=== PATIENT | female | born 1955 | race Caucasian/White ===

== ENCOUNTER → 2016-10-02 | Outpatient (CLI) | payer BC ==
[~2016-10-02] MED LIST: ACET-1256 PO; CHOL20009 PO; CYAN100048 PO; IBUP-1050 PO; METO25TA3 PO
[2016-10-02 12:54] LABS: BLOOD UREA NITROGEN 11 mg/dl (7-18); BUN/CREATININE RATIO 15.3 (10-20); CALCIUM 8.9 mg/dl (8.5-10.1); CARBON DIOXIDE 30 mmol/L (21-32); CHLORIDE 107 mmol/L (98-107); CREATININE 0.74 mg/dl (0.60-1.20); GLUCOSE 111 mg/dl (70-99); SODIUM 142 mmol/L (136-145)
[2016-10-02 12:57] LABS: CHOLESTEROL 217 mg/dl (0-200); CHOLESTEROL/HDL RATIO 3.4; HDL CHOLESTEROL 63 mg/dl; LDL CHOLESTEROL CALCULATED 129 mg/dl; TRIGLYCERIDES 123 mg/dl (0-150); VERY LOW DENSITY LIPOPROT CALC 25 mg/dl
== END | disposition home or self-care (01) ==
LOC: C.LABPVFM 09:58
PROVIDERS: ATTEND Family Medicine
DX: Z13.220 Encounter for screening for lipoid disorders (principal); Z13.1 Encounter for screening for diabetes mellitus

== ENCOUNTER → 2017-01-30 | Outpatient (CLI) | payer BC ==
--- NOTE | 2017-01-31 12:46 | MAMMOGRAPHY REPORT ---
BILATERAL DIGITAL SCREENING MAMMOGRAM TOMOSYNTHESIS WITH CAD: 01/30/2017 CLINICAL HISTORY: Routine screening. Patient has no complaints. TECHNIQUE: Breast tomosynthesis in addition to standard 2D mammography was performed. Current study was also evaluated with a Computer Aided Detection (CAD) system. COMPARISON: No prior exams were available for comparison. BREAST COMPOSITION: There are scattered areas of fibroglandular density in both breasts. FINDINGS: No suspicious masses, calcifications, or areas of architectural distortion are noted in ei ther breast. IMPRESSION: ACR BI-RADS CATEGORY 1: NEGATIVE There is no mammographic evidence of malignancy. A 1 year screening mammogram is recommended. The pa tient will receive written notification of the results. Approximately 10% of breast cancers are not detected with mammography. A negative mammographic report should not delay biopsy if a clinically suggestive mass is present. Carleen Cesar M.D. ah/:01/30/2017 17:03:01 Mid Level Provider: Katharine NEIL)([employer]), [facility] letter sent: Normal 1/2 BI-RADS Code: ACR BI-RADS Category 1: Negative
== END | disposition home or self-care (01) ==
LOC: C.MAMM 15:34
PROVIDERS: ATTEND Family Medicine
DX: Z12.31 Encounter for screening mammogram for malignant neoplasm of breast (principal)

== ENCOUNTER 2017-01-31 11:45 | Emergency (ER) | payer BC ==
[~2017-01-31] VITALS: Ht 152.4 cm; Wt 79.6 kg
[~2017-01-31 11:45] MED LIST changes: -CHOL20009 PO; -CYAN100048 PO; -METO25TA3 PO
[2017-01-31 11:46] VITALS: Ht 152.4 cm; Wt 79.6 kg
[2017-01-31] MEDS ORDERED: ONDANSETRON INJ 2 MG/ML 2 ML VIAL IV STA (12:15)
[2017-01-31] MEDS ORDERED: MoRPHine SULFATE 4 MG/ML 1 ML CARP\\VIAL IV STA (12:15)
[2017-01-31] MEDS ORDERED: SODIUM CHLORIDE 0.9% 1000ML 1,000 ML IV STA (12:15)
[2017-01-31] MEDS ORDERED: METO25TA3 PO (12:19)
[2017-01-31] MEDS ORDERED: CYAN100048 PO (12:19)
[2017-01-31] MEDS ORDERED: CHOL20009 PO (12:19)
--- NOTE | 2017-01-31 12:19 | EMERGENCY ROOM VISIT NOTE ---
History First contact with patient: 12:06 Chief Complaint: ABDOMINAL PAIN Stated Complaint: SEVERE STOMACH PAIN Nursing Triage Summary: Pt reports upper abdominal pain x 2-3 days with diarrhea. Pt reports hx of pancreatitis and states "it feels exactly like that." Pt reports she is unable to eat, makes abdominal pain worse. History of Present Illness The patient is a 61 year old female who presents to the Emergency Room via private vehicle accompanied by with complaints of "severe stomach pain" . The patient states that she has a history of pancreatitis. She is status post cholecystectomy and hysterectomy. This past Saturday she began with upper abdominal pain in the epigastric region, as well as diarrhea. She rates the pain as minimal, is a 1-2/10. At times it will spasm and is a 6-8/10. She notes that it is a nagging like pain. She states that when she had her gallbladder out this was a similar feeling. She has associated nausea. She denies any chest pain, shortness of breath, fevers, chills, emesis, recent alcohol use, urinary symptoms. Review of Systems A complete 10-point Review of Systems was discussed with the patient, with pertinent positives and negatives listed in the History of Present Illness. All remaining Review of Systems questions can be considered negative unless otherwise specified. Past Medical/Surgical History Pancreatitis, cholecystectomy, hysterectomy. Family History No pertinent. Social History Smoking Status: Never Smoker Patient lives locally. Current/Historical Medications Scheduled Cholecalciferol (Vitamin D), 1 TAB PO QAM Cyanocobalamin (Vitamin B-12), 2 TABS PO QAM Metoprolol Succinate (Toprol Xl), 25 MG PO QAM Physical Exam Vital Signs Date Time Temp Pulse Resp B/P (MAP) Pulse Ox O2 Delivery O2 Flow Rate FiO2 01/31/17 14:26 68 18 125/71 98 Room Air 01/31/17 12:40 74 18 128/85 94 Room Air 01/31/17 12:26 97 Room Air 01/31/17 12:16 73 01/31/17 11:46 36.7 79 18 150/89 99 Room Air Physical Exam VITAL SIGNS - Vital signs and nursing notes were reviewed. Patient is afebrile , hypertensive at 150/89, non-tachycardic and is saturating well on room air 99% . GENERAL -61-year-old female appearing her stated age who is in no acute distress. Communicates well with provider and answers questions appropriately. SKIN - Without rashes. Skin overlying the abdomen is unremarkable. HEAD - NC/AT. LUNGS - Chest wall symmetric without accessory muscle use, intercostals retractions, or central cyanosis. Normal vesicular breath sounds CTA B/L. No wheezes, rales, or rhonchi appreciated. CARDIAC - RRR with S1/S2. No murmur, rubs, or gallops appreciated. ABDOMEN - Abdominal contour without pulsations or visible masses. BS normoactive all four quadrants. There is tenderness in the epigastric region. It is also tender right upper quadrant. No palpable masses, hepatosplenomegaly , or ascites noted. NEUROLOGIC - Cranial nerves II through XII grossly intact. PSYCH - Pt is very pleasant and interacts well with examiner. Medical Decision & Procedures ER Provider Diagnostic Interpretation: ULTRASOUND RIGHT UPPER QUADRANT ABDOMEN CLINICAL HISTORY: Right upper quadrant abdominal pain. COMPARISON STUDY: Abdominal CT dated 09/17/2007. Abdominal ultrasound dated 11/06/2012. TECHNIQUE: Real-time, grayscale, and color flow sonography of the right upper quadrant of the abdomen was performed. Images are reviewed in the transverse and longitudinal planes. FINDINGS: Liver: The liver is normal in size and echotexture. There is no intrahepatic biliary ductal dilatation. The main portal vein is patent. Gallbladder: The gallbladder is surgically absent. The common bile duct measures up to 0.5 cm in diameter. Pancreas: Visualized portions of the pancreatic head and body are normal in appearance. The splenic vein is patent. Right kidney: Survey images of the right kidney demonstrate normal size and echotexture. There is no hydronephrosis. A 1.5 cm cyst is noted in the right upper pole. Ascites: None. IMPRESSION: No acute sonographic abnormality is seen in the right upper quadrant noting status post cholecystectomy. Electronically signed by: Wei Pollack M.D. 01/31/2017 2:11 PM Dictated Date/Time: 01/31/2017 2:09 PM ABD/PELVIS IV AND ORAL CONT CT DOSE: 854.67 mGycm HISTORY: Pain Upper quadrant abdominal pain. Hx Pancreatitis TECHNIQUE: Multiaxial CT images of the abdomen and pelvis were performed following the use of intravenous and oral contrast. A dose lowering technique was utilized adhering to the principles of ALARA. COMPARISON STUDY: Ultrasound same date FINDINGS: Lung bases are clear. Mild fatty infiltration of liver. Prior cholecystectomy. Spleen is uniform. Pancreas is within normal limits throughout. Small bilateral renal cysts. No evidence for hydronephrosis. Moderate wall edema of the a sending and transverse colon. Mild wall thickening and/or edematous change of the remainder the colon. Normal appendix. Unremarkable small bowel pattern. IMPRESSION: 1. Findings consistent with generalized colonic wall thickening. 2. Mild pericolonic infiltrative change. 3. The appearance suggests a nonspecific generalized colitis. 4. No evidence for abscess collection or obstructive change. The above report was generated using voice recognition software. It may contain grammatical, syntax or spelling errors. Electronically signed by: Lokesh Ho M.D. 01/31/2017 3:29 PM Dictated Date/Time: 01/31/2017 3:25 PM Laboratory Results 01/31/17 11:35 Red Blood Count 5.12, Mean Corpuscular Volume 86.1, Mean Corpuscular Hemoglobin 28.9, Mean Corpuscular Hemoglobin Concent 33.6, Mean Platelet Volume 9.0, Neutrophils (%) (Auto) 76.8, Lymphocytes (%) (Auto) 17.2, Monocytes (%) (Auto) 5.1, Eosinophils (%) (Auto) 0.4, Basophils (%) (Auto) 0.4, Neutrophils # (Auto) 6.52, Lymphocytes # (Auto) 1.46, Monocytes # (Auto) 0.43, Eosinophils # (Auto) 0.03, Basophils # (Auto) 0.03 01/31/17 11:35 Test 01/31/17 11:24 01/31/17 11:35 Urine Color DK YELLOW Urine Appearance TURBID (CLEAR) Urine pH 5.0 (4.5-7.5) Urine Specific [place] 1.026 (1.000-1.030) Urine Protein NEG (NEG) Urine Glucose (UA) NEG (NEG) Urine Ketones TRACE (NEG) Urine Occult Blood TRACE (NEG) Urine Nitrite NEG (NEG) Urine Bilirubin NEG (NEG) Urine Urobilinogen NEG (NEG) Urine Leukocyte Esterase NEG (NEG) Urine WBC (Auto) 1-5 /hpf (0-5) Urine RBC (Auto) 0-4 /hpf (0-4) Urine Hyaline Casts (Auto) 1-5 /lpf (0-5) Urine Epithelial Cells (Auto) >30 /lpf (0-5) Urine Bacteria (Auto) NEG (NEG) White Blood Count 8.48 K/uL (4.8-10.8) Red Blood Count 5.12 M/uL (4.2-5.4) Hemoglobin 14.8 g/dL (12.0-16.0) Hematocrit 44.1 % (37-47) Mean Corpuscular Volume 86.1 fL (80-100) Mean Corpuscular Hemoglobin 28.9 pg (25-34) Mean Corpuscular Hemoglobin Concent 33.6 g/dl (32-36) Platelet Count 183 K/uL (130-400) Mean Platelet Volume 9.0 fL (7.4-10.4) Neutrophils (%) (Auto) 76.8 % Lymphocytes (%) (Auto) 17.2 % Monocytes (%) (Auto) 5.1 % Eosinophils (%) (Auto) 0.4 % Basophils (%) (Auto) 0.4 % Neutrophils # (Auto) 6.52 K/uL (1.4-6.5) Lymphocytes # (Auto) 1.46 K/uL (1.2-3.4) Monocytes # (Auto) 0.43 K/uL (0.11-0.59) Eosinophils # (Auto) 0.03 K/uL (0-0.5) Basophils # (Auto) 0.03 K/uL (0-0.2) RDW Standard Deviation 40.6 fL (36.4-46.3) RDW Coefficient of Variation 12.7 % (11.5-14.5) Immature Granulocyte % (Auto) 0.1 % Immature Granulocyte # (Auto) 0.01 K/uL (0.00-0.02) Anion Gap 3.0 mmol/L (3-11) Est Creatinine Clear Calc Drug Dose 75.7 ml/min Estimated GFR () 105.1 Estimated GFR (Non- 90.7 BUN/Creatinine Ratio 13.4 (10-20) Calcium Level 9.1 mg/dl (8.5-10.1) Magnesium Level 1.8 mg/dl (1.8-2.4) Total Bilirubin 0.5 mg/dl (0.2-1) Aspartate Amino Transf (AST/SGOT) 15 U/L (15-37) Alanine Aminotransferase (ALT/SGPT) 29 U/L (12-78) Alkaline Phosphatase 114 U/L (45-117) Troponin I < 0.015 ng/ml (0-0.045) Total Protein 7.1 gm/dl (6.4-8.2) Albumin 3.6 gm/dl (3.4-5.0) Globulin 3.5 gm/dl (2.5-4.0) Albumin/Globulin Ratio 1.0 (0.9-2) Amylase Level 21 U/L (25-115) Lipase 74 U/L (73-393) Medications Administered Medications (Trade) Dose Ordered Sig/Miroslava Route Start Time Stop Time Status Last Admin Dose Admin Sodium Chloride 1,000 ml @ 200 mls/hr Q5H STAT IV 01/31/17 12:15 01/31/17 17:14 01/31/17 12:37 200 MLS/HR Morphine Sulfate (MoRPHine SULFATE INJ) 4 mg NOW STAT IV 01/31/17 12:15 01/31/17 12:18 DC 01/31/17 12:38 4 MG Ondansetron HCl (Zofran Inj) 4 mg NOW STAT IV 01/31/17 12:15 01/31/17 12:18 DC 01/31/17 12:37 4 MG Medical Decision Patient was seen and evaluated as above. After obtaining a thorough history and physical examination IV access was initiated, and the above workup was performed. Patient presents to us today with epigastric abdominal pain, that is worse with eating. Her abdomen exam is consistent with that of a nonsurgical abdomen. She is status post cholecystectomy and hysterectomy. Her associated symptoms are that of diarrhea and nausea. This is concerning for colitis. There is also concern for pancreatitis. CBC reveals no concerning leukocytosis or anemia. CMP reveals chloride slightly high at 109, kidney function is okay, liver functions okay, troponin is negative, amylase and lipase are both nondiagnostic. Urine reveals trace ketones and occult blood, there is some epithelial cells. She denies any blood in the urine. She is to follow up regarding the small finding of blood. Chest x-ray with abdomen series was obtained, and negative. Abdominal ultrasound was negative. Decision was made after discussing benefits versus risk of obtaining a CAT scan. This is of the abdomen and pelvis. This reveals a generalized colitis. She has no recent contacts with foodborne illness, or different foods. I suspect this is likely viral. She was offered antibiotics, and stool culture but at this time we're going to allow her to go home with outpatient management , without antibiotics and see how she does. She believes this is also a good idea. She is to return with worsening. She is to call her family doctor soon as possible schedule follow-up. She was educated upon conservative management, to include but not limited to plenty of fluid intake, and a bland diet over the next few days. She is to return with worsening. She was educated upon worrisome symptoms which to return, had questions as per discharge, and was discharged home in good condition with the male driving. She was given morphine and Zofran here as well as fluids. EKG reveals normal sinus rhythm. This is paired with a negative troponin. Case was discussed with the attending physician. In the evaluation and treatment of this patient following differential diagnoses were entertained: GA, PE, GERD, pancreatitis, colitis, among others. Impression Primary Impression: Colitis, acute Departure Information Dispostion Home / Self-Care Condition GOOD Referrals Minh Austin M.D. (PCP) Patient Instructions ED Diet [place], My [facility] Additional Instructions You have been treated in the Emergency Department your Abdominal Pain. Laboratory results and imaging studies have ruled out any emergent causes for your abdominal pain which would warrant admission or surgery. Please follow-up with Dr. Austin regarding the other CT scan findings as we discussed. It appears that you have a generalized colitis, which is and inflammation of your intestines. This is likely due to a virus. It should pass in the next few days. Please consume a bland diet for the next few days and drink plenty of water to stay hydrated. Gatorade is also good idea. For pain control, you can use the following [id number] medicines: - Regular strength (325mg/tab) Tylenol (acetaminophen) 2 tabs every 4-6 hours as needed. Do not exceed 12 tablets in a 24 hour period. Avoid taking more than 3 grams (3000 mg) of Tylenol per day. This includes any other sources of acetaminophen you may take on a regular basis. Drink plenty of water and stay well hydrated. As with any trip to the Emergency Department, you should follow-up with your Primary Care Provider from today's visit. Please call the first thing tomorrow morning to schedule follow-up. Return to the emergency department if your symptoms persist despite treatment plan outlined above or if the following symptoms occur: increased fevers, chills , worsening nausea/vomiting, blood in your stool or urine. Please return to the emergency department with new/concerning symptoms. ABD/PELVIS IV AND ORAL CONT CT DOSE: 854.67 mGycm HISTORY: Pain Upper quadrant abdominal pain. Hx Pancreatitis TECHNIQUE: Multiaxial CT images of the abdomen and pelvis were performed following the use of intravenous and oral contrast. A dose lowering technique was utilized adhering to the principles of ALARA. COMPARISON STUDY: Ultrasound same date FINDINGS: Lung bases are clear. Mild fatty infiltration of liver. Prior cholecystectomy. Spleen is uniform. Pancreas is within normal limits throughout. Small bilateral renal cysts. No evidence for hydronephrosis. Moderate wall edema of the a sending and transverse colon. Mild wall thickening and/or edematous change of the remainder the colon. Normal appendix. Unremarkable small bowel pattern.
[2017-01-31 12:26] VITALS: O2SAT 97
[2017-01-31] MEDS ORDERED: OPTIRAY 320 IV PRN (12:30)
[2017-01-31 12:54] LABS: BASO % 0.4 %; BASO ABS # 0.03 K/uL (0-0.2); COMPLETE YES; EOS % 0.4 %; HEMATOCRIT 44.1 % (37-47); IG% 0.1 %; LYMPH % 17.2 %; LYMPH ABS # 1.46 K/uL (1.2-3.4); MEAN CELL VOLUME 86.1 fL (80-100); MEAN CORPUSCULAR HEMOGLOBIN 28.9 pg (25-34); MEAN CORPUSCULAR HGB CONC 33.6 g/dl (32-36); MONO % 5.1 %; NEUT % 76.8 %; PLATELET COUNT 183 K/uL (130-400); RED BLOOD COUNT 5.12 M/uL (4.2-5.4); WHITE BLOOD COUNT 8.48 K/uL (4.8-10.8)
[2017-01-31 13:12] LABS: ALT/SGPT 29 U/L (12-78); AMYLASE 21 U/L (25-115); AST/SGOT 15 U/L (15-37); BLOOD UREA NITROGEN 9 mg/dl (7-18); BUN/CREATININE RATIO 13.4 (10-20); CALCIUM 9.1 mg/dl (8.5-10.1); CARBON DIOXIDE 28 mmol/L (21-32); CHLORIDE 109 mmol/L (98-107); CREATININE 0.71 mg/dl (0.60-1.20); GLUCOSE 100 mg/dl (70-99); MAGNESIUM 1.8 mg/dl (1.8-2.4); POTASSIUM 3.9 mmol/L (3.5-5.1); SODIUM 140 mmol/L (136-145)
[2017-01-31 13:18] LABS: ALKALINE PHOSPHATASE 114 U/L (45-117)
[2017-01-31 13:28] LABS: URINE APPEARANCE TURBID (CLEAR); URINE BILIRUBIN NEG (NEG); URINE COLOR DK YELLOW; URINE EPITHELIAL CELL AUTO >30 /lpf (0-5); URINE NITRITE NEG (NEG); URINE SPECIFIC GRAVITY 1.026 (1.000-1.030); UROBILINOGEN NEG (NEG); ZZUR CULT IF INDIC CLEAN CATCH NO
[2017-01-31 13:31] LABS: MANUAL MICROSCOPIC REQUIRED? NO; REVIEW REQ? NO
--- NOTE | 2017-01-31 13:46 | DIAGNOSTIC IMAGING REPORT ---
PA CHEST WITH ABDOMINAL SERIES CLINICAL HISTORY: Upper abdominal pain. FINDINGS: A PA chest radiograph is compared to study dated 11/06/2012. The examination is degraded by patient rotation. The cardiomediastinal silhouette is unremarkable. The lungs and pleural spaces are clear. No pneumothorax is seen. The skeletal structures are osteopenic. The bony thorax is grossly intact. Supine and erect abdominal radiographs are correlated with abdominal CT dated 09/17/2007. There is a nonobstructed abdominal bowel gas pattern. No evidence of intraperitoneal free air is seen. Cholecystectomy clips are noted. Enteric contrast is present. There are no abnormal abdominal calcifications. Pelvic phleboliths are noted. Mild lumbosacral spondylosis is observed. The lumbosacral spine and bony pelvis appear intact. IMPRESSION: 1. No active disease in the chest. 2. Nonobstructed abdominal bowel gas pattern. Electronically signed by: Wei Pollack M.D. 01/31/2017 1:45 PM Dictated Date/Time: 01/31/2017 1:43 PM
--- NOTE | 2017-01-31 14:13 | DIAGNOSTIC IMAGING REPORT ---
ULTRASOUND RIGHT UPPER QUADRANT ABDOMEN CLINICAL HISTORY: Right upper quadrant abdominal pain. COMPARISON STUDY: Abdominal CT dated 09/17/2007. Abdominal ultrasound dated 11/06/2012. TECHNIQUE: Real-time, grayscale, and color flow sonography of the right upper quadrant of the abdomen was performed. Images are reviewed in the transverse and longitudinal planes. FINDINGS: Liver: The liver is normal in size and echotexture. There is no intrahepatic biliary ductal dilatation. The main portal vein is patent. Gallbladder: The gallbladder is surgically absent. The common bile duct measures up to 0.5 cm in diameter. Pancreas: Visualized portions of the pancreatic head and body are normal in appearance. The splenic vein is patent. Right kidney: Survey images of the right kidney demonstrate normal size and echotexture. There is no hydronephrosis. A 1.5 cm cyst is noted in the right upper pole. Ascites: None. IMPRESSION: No acute sonographic abnormality is seen in the right upper quadrant noting status post cholecystectomy. Electronically signed by: Wei Pollack M.D. 01/31/2017 2:11 PM Dictated Date/Time: 01/31/2017 2:09 PM
--- NOTE | 2017-01-31 15:30 | DIAGNOSTIC IMAGING REPORT ---
ABD/PELVIS IV AND ORAL CONT CT DOSE: 854.67 mGycm HISTORY: Pain Upper quadrant abdominal pain. Hx Pancreatitis TECHNIQUE: Multiaxial CT images of the abdomen and pelvis were performed following the use of intravenous and oral contrast. A dose lowering technique was utilized adhering to the principles of ALARA. COMPARISON STUDY: Ultrasound same date FINDINGS: Lung bases are clear. Mild fatty infiltration of liver. Prior cholecystectomy. Spleen is uniform. Pancreas is within normal limits throughout. Small bilateral renal cysts. No evidence for hydronephrosis. Moderate wall edema of the a sending and transverse colon. Mild wall thickening and/or edematous change of the remainder the colon. Normal appendix. Unremarkable small bowel pattern. IMPRESSION: 1. Findings consistent with generalized colonic wall thickening. 2. Mild pericolonic infiltrative change. 3. The appearance suggests a nonspecific generalized colitis. 4. No evidence for abscess collection or obstructive change. The above report was generated using voice recognition software. It may contain grammatical, syntax or spelling errors. Electronically signed by: Lokesh Ho M.D. 01/31/2017 3:29 PM Dictated Date/Time: 01/31/2017 3:25 PM
[2017-01-31 16:34] VITALS: BP 125/71; PULSE 68; TEMP 36.7; O2SAT 98
== END 2017-01-31 16:35 | disposition home or self-care (01) ==
LOC: C.EDB 11:46
DX: K52.9 Noninfective gastroenteritis and colitis, unspecified (principal); Z87.19 Personal history of other diseases of the digestive system; Z79.899 Other long term (current) drug therapy

== ENCOUNTER → 2017-03-01 | Outpatient (CLI) | payer BC ==
[~2017-03-01] MED LIST changes: -ACET-1256 PO; +CHOL20009 PO; +CYAN100048 PO; -IBUP-1050 PO; +METO25TA3 PO
[2017-03-01 13:06] LABS: ALT/SGPT 25 U/L (12-78); BLOOD UREA NITROGEN 17 mg/dl (7-18); BUN/CREATININE RATIO 21.7 (10-20); CALCIUM 9.3 mg/dl (8.5-10.1); CARBON DIOXIDE 29 mmol/L (21-32); CHLORIDE 108 mmol/L (98-107); GLUCOSE 98 mg/dl (70-99); POTASSIUM 4.1 mmol/L (3.5-5.1); SODIUM 142 mmol/L (136-145)
[2017-03-01 13:17] LABS: ALB/GLOB RATIO 1.1 (0.9-2); ALKALINE PHOSPHATASE 111 U/L (45-117); AST/SGOT 18 U/L (15-37)
== END | disposition home or self-care (01) ==
LOC: C.LABPVFM 11:03
PROVIDERS: ATTEND Nurse Practitioner Family
DX: R00.2 Palpitations (principal)

== ENCOUNTER 2024-06-05 21:45 | Inpatient (IN) ==
--- NOTE | 2024-06-05 21:37 | Emergency Department Note ---
History of Present Illness General Chief Complaint: Heart Alert Stated Complaint: Chest Pain History of Present Illness Provider Complaint: chest pain Time: 16:00 Duration: constant Onset: during rest Pain Location: substernal Pain Radiation: none Severity: severe Current Pain Intensity: 10 Quality: + heaviness Relieved By: + nothing Exacerbated By: + nothing Associated symptoms: + nausea; no dyspnea Treatments prior to arrival: aspirin, nitroglycerin (5 sprays), oxygen and other (fentanyl IV) Home Medications Medication Instructions Recorded Confirmed Type cholecalciferol (vitamin D3) 50 2,000 units PO DAILY 05/12/19 06/05/24 History mcg (2,000 unit) capsule cyanocobalamin (vitamin B-12) 1,000 mcg PO DAILY 05/12/19 06/05/24 History 1,000 mcg tablet,extended release metoprolol succinate 25 mg 25 mg PO QAM #90 tabs 03/26/24 06/05/24 Rx tablet,extended release 24 hr omega 1-bsa-iah-fish oil 1,000 mg 1 cap PO DAILY 06/05/24 06/05/24 History (120 mg-180 mg) capsule (Fish Oil) Allergies Allergy/AdvReac Type Severity Reaction Status Date / Time house dust Allergy Mild Congested Verified 08/23/23 15:03 Jfspcwg-CXK-HmF Reductase AdvReac Intermediate Back Pain Verified 08/23/23 15:03 Inhibitor [Pjnvcin-Xjl-Svw Reductase Inhibitor] Past Med/Surg History Problem List (Updated 06/05/24 @ 22:26 by Kenny Cowan MD) STEMI (ST elevation myocardial infarction) (Acute) COVID-19 Bilateral knee pain Lipoma Statin intolerance Osteoarthritis Arthralgia of multiple sites (Chronic) Hyperlipidemia (Chronic) cannot shen statins or zetia Palpitations REASON FOR METOPROLOL Benign hypertension (Chronic) Medical History Urinary symptom or sign Osteoarthritis Urinary, incontinence, stress female Hx of pancreatitis GERD (gastroesophageal reflux disease) Surgical History History of anesthesia reaction WAS TOLD WITH ERCP "HAD DIFFICULT TIME GETTING PUT UNDER". History of ERCP History of dilatation and curettage "MULTIPLE TIMES" History of total abdominal hysterectomy History of cholecystectomy History of tooth extraction Family History Mother Family history of diabetes mellitus Myocardial infarction Father Myocardial infarction Denies family history of Ovarian cancer Prostate cancer Breast cancer Colorectal cancer Social History Smoking Status: Never smoker Second Hand Exposure: No; Do You Dip or Chew Tobacco: No; Hx Alcohol Use: Yes Alcohol type: beer, wine and hard liquor Hx Substance Use: No Preferred Language: Paraguayan Communication Ability: Effective Well Driller Required: No Beliefs That Will Affect Care: None marital status: Current Living Situation: Spouse Current Living Situation Comment: lives with spouse current occupational status: employed current occupation: works at [employer] How many Children do You have: 1 Feels Safe at Home: Yes Childhood Exposure to Second-Hand Smoke: Yes (both mother and father smokes ) Diet: regular caffeine: Yes (1 cup coffee a day ) Dental Care, Regularly: Yes Physical Activity Frequency: 5-6 Times per Week Seatbelt Use: always Sunscreen Use: Yes Assistive Devices: None Physical Exam Vital Signs Vital Signs - 24 hr 06/05/24 21:38 06/05/24 21:38 06/05/24 21:38 Temperature 36.9 C Temperature Source Oral Pulse Rate 103 H 103 H Pulse Rhythm Irregular Irregular Respiratory Rate 18 18 Respiratory Effort / Characteristics Non-Labored Spontaneous Respiratory Depth Normal Respiratory Pattern Regular Blood Pressure 128/83 Blood Pressure Mean 98 Blood Pressure Position Lying Pulse Oximetry 95 95 95 Oxygen Delivery Method Nasal Cannula Nasal Cannula Nasal Cannula Oxygen Flow Rate 2 2 2 Sepsis Recent Fever Within 48 Hours No Sepsis New/Unexplained Change in Mental Status No Sepsis Action Taken by Nursing No Action Required 06/05/24 21:52 06/05/24 22:15 Temperature Temperature Source Pulse Rate 68 105 H Pulse Rhythm Respiratory Rate 20 Respiratory Effort / Characteristics Respiratory Depth Respiratory Pattern Blood Pressure 148/86 H Blood Pressure Mean Blood Pressure Position Pulse Oximetry 96 Oxygen Delivery Method Nasal Cannula Oxygen Flow Rate 2 Sepsis Recent Fever Within 48 Hours Sepsis New/Unexplained Change in Mental Status Sepsis Action Taken by Nursing Physical Exam NECK: Normal range of motion. Neck supple. No JVD present. CV: Normal rate, regular rhythm, normal heart sounds and intact distal pulses. There is no peripheral edema. Palpable radial pulses bue. PULM/CHEST: Effort normal and breath sounds normal. No respiratory distress. No stridor. no wheezes. no rales. ABD: The abdomen is soft. There is no tenderness. NEURO: Motor and sensation grossly intact. Course Course 2134: Received an EKG from EMS which showed ST elevation in leads V1, V2, V3 with some mild ST depressions in leads II, III and aVF as well as V6 5 and V6. Patient was reportedly having chest pain that began at 4 PM. Nitroglycerin and aspirin were given via EMS. Heart alert called from the field. 2144: The patient was evaluated in room A1. A complete history and physical exam was performed Cardiac monitoring: An order was placed for continuous cardiac monitoring. The monitor shows a rate of 100 with sinus rhythm interpreted by va 2159: Dr. Baker at bedside ok with Brilinta 180 PO and heparin 5000 U bolus. 2214: Patient off to Cash Applications Manager. Administered Medications Discontinued Medications Heparin Sodium (Porcine) (Heparin Sod (Porcine) 1000 Unit/Ml) 5,000 units IV NOW ONE Stop: 06/05/24 21:53 Last Admin: 06/05/24 22:07 Dose: 5,000 units Documented By: CHARISSE Co-signed By: BILL Heparin Sodium (Porcine) (Heparin Sod (Porcine) 1000 Unit/Ml) Confirm Administered Dose 1,000 units .ROUTE .STK-MED ONE Stop: 06/05/24 21:53 Last Admin: 06/05/24 22:07 Dose: Not Given Documented By: CHARISSE Hydromorphone HCl (Hydromorphone Inj 1 Mg/Ml Syringe) 1 mg IV NOW STA Stop: 06/05/24 21:57 Last Admin: 06/05/24 22:06 Dose: 1 mg Documented By: CHARISSE Hydromorphone HCl (Hydromorphone Inj 1 Mg/Ml Syringe) Confirm Administered Dose 1 mg .ROUTE .STK-MED ONE Stop: 06/05/24 21:58 Last Admin: 06/05/24 22:07 Dose: Not Given Documented By: CHARISSE Morphine Sulfate (Morphine Sulfate 4 Mg/Ml 1 Ml Carp\\Vial) Confirm Administered Dose 4 mg .ROUTE .STK-MED ONE Stop: 06/05/24 21:52 Last Admin: 06/05/24 22:07 Dose: 4 mg Documented By: CHARISSE Ticagrelor (Ticagrelor 90 Mg Tab) 180 mg PO ONE ONE Stop: 06/05/24 21:53 Last Admin: 06/05/24 22:06 Dose: 180 mg Documented By: CHARISSE Ticagrelor (Ticagrelor 90 Mg Tab) Confirm Administered Dose 180 mg .ROUTE .STK- MED ONE Stop: 06/05/24 21:53 Last Admin: 06/05/24 22:07 Dose: Not Given Documented By: CHARISSE Medical Decision Making Laboratory Data 06/05/24 21:57 06/05/24 21:57 Labs: Lab Results 06/05/24 06/05/24 Range/Units 21:57 22:02 WBC 18.67 H (4.8-10.8) K/ul RBC 4.76 (4.20-5.40) M/uL Hgb 13.3 (12.0-16.0) g/dl POC Hgb 13.6 (12.0-16.0) g/dl Hct 41.0 (37.0-47.0) % POC Hct 40 (37-47) % MCV 86.1 (80.0-100.0) fL MCH 27.9 (25.0-34.0) pg MCHC 32.4 (32.0-36.0) g/dL RDW Std Deviation 39.0 (36.4-46.3) fL RDW Coeff of Tiffanie 12.4 (11.5-14.5) % Plt Count 275 (130-400) K/uL MPV 9.3 L (9.4-12.4) fL Immature Gran % (Auto) 0.4 % Neut % (Auto) 84.5 % Lymph % (Auto) 12.6 % Mcleod % (Auto) 2.1 % Eos % (Auto) 0.1 % Baso % (Auto) 0.3 % Neut # (Auto) 15.78 H (1.40-6.50) K/uL Lymph # (Auto) 2.35 (1.20-3.40) K/uL Mcleod # (Auto) 0.40 (0.11-0.59) K/uL Eos # (Auto) 0.02 (0.00-0.50) K/uL Baso # (Auto) 0.05 (0.00-0.20) K/uL Immature Gran # (Auto) 0.07 (0.01-0.20) K/uL POC Sodium 141 (135-144) mmol/L POC Potassium 3.5 (3.3-5.0) mmol/L POC Chloride 107 (101-112) mmol/L POC Total CO2 22 L (24-31) mmol/L POC Anion Gap 16.0 (16-25) mmol/L POC BUN 17 (7-18) mg/dl POC Creatinine 0.6 (0.6-1.3) mg/dl POC Glucose (other) 245 H (70-99) mg/dl POC Ioniz Calcium Anne-Marie 1.14 (1.12-1.32) mmol/l Imaging Data Chest x-ray: Attestation: I personally reviewed and interpreted this imaging study as follows: My impression: Chest x-ray negative. Airway clear. No pneumothorax. No consolidation. No cardiomegaly or cephalization.. No free air under the diaphragm. No fractures of the skeletal structures. ECG Data Attestation: I personally reviewed and interpreted this ECG as follows: Indication: chest pain Rate (beats per minute): 100 Rhythm: normal sinus Findings: + ST depression (II III aVF V5 V6) and + ST elevation (V1 V2 V3 aVR); no prolonged QT MDM Narrative 2135: Received an EKG from EMS which showed ST elevation in leads V1, V2, V3 with some mild ST depressions in leads II, III and aVF as well as V6 5 and V6. Patient was reportedly having chest pain that began at 4 PM. Nitroglycerin and aspirin were given via EMS. Heart alert called from the field. 2144: The patient was evaluated in room A1. A complete history and physical exam was performed Cardiac monitoring: An order was placed for continuous cardiac monitoring. The monitor shows a rate of 100 with sinus rhythm interpreted by me 2159: Dr. Baker at bedside ok with Brilinta 180 PO and heparin 5000 U bolus. 2215: Patient off to Cash Applications Manager. Impression & Plan STEMI (ST elevation myocardial infarction) Critical Care Time Critical Care Time: Yes Total Critical Care Time: 35 I have personally spent greater than 35 minutes of critical care time in the direct management of this patient. This includes bedside care, interpretation of diagnostic studies, and testing, discussion with consultants, patient, and family members, and other required patient management activities. This 35 minutes is in excess of all separately billable procedures. Discharge Plan Visit Data Chief Complaint: Heart Alert Stated Complaint: Chest Pain ED Provider: Kenny Cowan Discharge Problem: STEMI (ST elevation myocardial infarction) Patient Disposition: Admitted As Inpatient Discharge Instructions Interventions: ED Discharge Assessment Last Done: 06/05/24 22:15 Forms Stand Alone Forms: My [facility] [place] KeyCAPTCHA Prescriptions Prescriptions: No Action metoprolol succinate 25 mg tablet extended release 24 hr 25 mg PO QAM Qty: 90 3RF Rx Instructions: can't tolerate tartrate cholecalciferol (vitamin D3) 50 mcg (2,000 unit) capsule 2,000 units PO DAILY cyanocobalamin (vitamin B-12) 1,000 mcg tablet extended release 1,000 mcg PO DAILY omega 3-khj-kqt-fish oil [Fish Oil] 1,000 (120-180) mg Capsule 1 cap PO DAILY Referrals Referrals: Lynette Puri CRNP [Primary Care Provider] -
[2024-06-05] MEDS: TICAGRELOR 90 MG TAB PO ONE (22:06)
[2024-06-05] MEDS: HYDROmorphone INJ 1 MG/ML SYRINGE IV STA (22:06)
--- NOTE | 2024-06-05 22:06 | Pre Anesthesia Assessment ---
Date of Service June 05, 2024 Pre Sedation Assessment Cardiovascular + tachycardic Respiratory + respiratory effort normal Pre-Sedation Airway Assessment Smoking Status: Never smoker Hx Sleep Apnea: No Hx Difficult Intubation: No Short, Thick Neck: No Thyromental Distance: < 3.5 Finger Breadths Oral Cavity: + Dental Abnormalities Mallampati Class: III ASA: ASA4 Procedure Planning Contraindications for Sedation: none Current Medications Reviewed: Yes Notes The planned sedation has been discussed with the patient. Informed Consent was obtained. I have identified the patient, determined the appropriateness of sedation and have assessed the patient immediately prior to the procedure. All medicine(s) and interventions are by my order.
[2024-06-05] MEDS: HEPARIN SOD (PORCINE) 1000 UNIT/ML ONE (22:07)
[2024-06-05] MEDS: HEPARIN SOD (PORCINE) 1000 UNIT/ML IV ONE (22:07)
[2024-06-05] MEDS: HYDROmorphone INJ 1 MG/ML SYRINGE ONE (22:07)
[2024-06-05] MEDS: MoRPHine SULFATE 4 MG/ML 1 ML CARP\\VIAL ONE (22:07)
[2024-06-05] MEDS: TICAGRELOR 90 MG TAB ONE (22:07)
--- NOTE | 2024-06-05 22:10 | Cardiology Consultation ---
Date of Consultation June 05, 2024 Assessment & Plan (1) STEMI (ST elevation myocardial infarction): Presentation consistent with anterior STEMI and recommend proceeding with emergent cardiac catheterization and likely primary PCI. No apparent contraindications to procedure. Discussed risks, benefits, alternatives of procedure with patient and they are willing to proceed. Given IV heparin and ticagrelor 180 mg in the ED. Further recommendations pending findings of coronary angiography. History of Present Illness History of Present Illness 68-year-old woman here with acute chest pain and ECG concerning for acute [place]. Patient seen emergently in the ED after heart alert activated on arrival. Past cardiac history remarkable only for palpitations. Cardiac risk factors include hypertension, dyslipidemia with statin intolerance, obesity. Chest pain began approximately 4 PM, approximately 5.5 hours prior to arrival. Describes severe substernal pain with associated nausea. Denies similar symptoms in the past. Given multiple nitroglycerin in route. Continued to have severe chest pain despite multiple doses of morphine and 1 of Dilaudid in ED. Hypertensive to the 160s. EKG showed sinus rhythm with an terior ST elevations. Allergies Allergy/AdvReac Type Severity Reaction Status Date / Time house dust Allergy Mild Congested Verified 08/23/23 15:03 Fmpxokh-KSY-EtA Reductase AdvReac Intermediate Back Pain Verified 08/23/23 15:03 Inhibitor [Vsnbwah-Mfs-Lgw Reductase Inhibitor] Home Medications Medication Instructions Recorded Confirmed Type cholecalciferol (vitamin D3) 50 2,000 units PO DAILY 05/12/19 06/05/24 History mcg (2,000 unit) capsule cyanocobalamin (vitamin B-12) 1,000 mcg PO DAILY 05/12/19 06/05/24 History 1,000 mcg tablet,extended release metoprolol succinate 25 mg 25 mg PO QAM #90 tabs 03/26/24 06/05/24 Rx tablet,extended release 24 hr omega 3-dbf-gqv-fish oil 1,000 mg 1 cap PO DAILY 06/05/24 06/05/24 History (120 mg-180 mg) capsule (Fish Oil) Patient History Medical History Urinary symptom or sign Osteoarthritis Urinary, incontinence, stress female Hx of pancreatitis GERD (gastroesophageal reflux disease) Surgical History History of anesthesia reaction WAS TOLD WITH ERCP "HAD DIFFICULT TIME GETTING PUT UNDER". History of ERCP History of dilatation and curettage "MULTIPLE TIMES" History of total abdominal hysterectomy History of cholecystectomy History of tooth extraction Family History Mother Family history of diabetes mellitus Myocardial infarction Father Myocardial infarction Denies family history of Ovarian cancer Prostate cancer Breast cancer Colorectal cancer Social History Smoking Status: Never smoker Second Hand Exposure: No; Do You Dip or Chew Tobacco: No; Hx Alcohol Use: Yes Alcohol type: beer, wine and hard liquor Hx Substance Use: No Preferred Language: Jamaican Communication Ability: Effective Ems Educator Required: No Beliefs That Will Affect Care: None marital status: Current Living Situation: Spouse Current Living Situation Comment: lives with spouse current occupational status: employed current occupation: works at [employer] How many Children do You have: 1 Feels Safe at Home: Yes Childhood Exposure to Second-Hand Smoke: Yes (both mother and father smokes ) Diet: regular caffeine: Yes (1 cup coffee a day ) Dental Care, Regularly: Yes Physical Activity Frequency: 5-6 Times per Week Seatbelt Use: always Sunscreen Use: Yes Assistive Devices: None Review of Systems Review of Systems: Not completed in the setting of emergent situation Physical Exam Physical Exam: General: Uncomfortable, writhing HEENT: Sclerae anicteric Lungs: Clear anteriorly Cardiac: Regular with no murmurs Vascular: 2+ radial Abdomen: Soft, nontender Extremities: Well perfused, no peripheral edema Neuro: Nonfocal Psych: Alert orient x3, normal affect and mood PG Care Time/CCT Total # of Minutes Spent Total Time Spent with Patient: Total time spent is greater than 50% in coordination of care (as documented) at patient's floor/unit and/or counseling patient: Coding Level of Care Code 89861 ER DEPT VISIT MOD LVL 4 Diagnoses STEMI (ST elevation myocardial infarction) I21.3
[2024-06-05 22:14] LABS: iSTAT Creatinine 0.6 mg/dl (0.6-1.3); iSTAT Hemoglobin 13.6 g/dl (12.0-16.0); iSTAT Ionized Calcium 1.14 mmol/l (1.12-1.32); iSTAT Potassium 3.5 mmol/L (3.3-5.0)
[2024-06-05 22:15] LABS: Basophils # (auto) 0.05 K/uL (0.00-0.20); Basophils % (auto) 0.3 %; Eosinophils # (auto) 0.02 K/uL (0.00-0.50); Eosinophils % (auto) 0.1 %; Hemoglobin 13.3 g/dl (12.0-16.0); Immature Granulocytes # (auto) 0.07 K/uL (0.01-0.20); Immature Granulocytes % (auto) 0.4 %; Lymphocytes # (auto) 2.35 K/uL (1.20-3.40); Lymphocytes % (auto) 12.6 %; Mean Corpuscular Hemoglobin 27.9 pg (25.0-34.0); Mean Corpuscular Hgb Conc 32.4 g/dL (32.0-36.0); Mean Corpuscular Volume 86.1 fL (80.0-100.0); Mean Platelet Volume 9.3 fL (9.4-12.4); Monocytes % (auto) 2.1 %; Neutrophils # (auto) 15.78 K/uL (1.40-6.50); Neutrophils % (auto) 84.5 %; Platelet Count 275 K/uL (130-400); RDW Coefficient of Variation 12.4 % (11.5-14.5); Red Blood Count 4.76 M/uL (4.20-5.40); White Blood Count 18.67 K/ul (4.8-10.8)
[2024-06-05 22:33] LABS: Albumin Globulin Ratio 1.7 (0.9-2); Albumin Level 4.2 gm/dl (3.4-5.0); BUN Creatinine Ratio 21.1 (10-20); Bilirubin,Total 0.4 mg/dl (0.2-1.0); Calcium 9.4 mg/dl (8.6-10.3); Globulin 2.5 gm/dl (2.5-4.0); Magnesium 1.6 mg/dl (1.7-2.4); Potassium 3.6 mmol/L (3.5-5.1); Total Protein 6.7 gm/dl (6.0-8.3)
[2024-06-05 22:40] LABS: Troponin I High Sensitivity 709.9 pg/ml (0-14)
[2024-06-05] MEDS: niCARdipine 2,000 MCG/20 ML SYR ONE (22:42)
[2024-06-05] MEDS: NITROGLYCERIN/D5W 100MCG/ML 20ML SYR ONE (22:42)
[2024-06-05 22:46] LABS: Thyroid Stimulating Hormone 2.174 uIu/ml (0.300-4.500)
[2024-06-05] MEDS: EPTIFIBATIDE 2 MG/ML 10 ML VIAL (CATH LAB USE ONLY) IV ONE ×2 (23:04→23:05)
[2024-06-05] MEDS: EPTIFIBATIDE 0.75 MG/ML 75MG VIAL (CATH LAB USE ONLY) IV ONE (23:05)
[2024-06-05] MEDS: MIDAZOLAM HCL 1 MG/ML 2ML VIAL ONE (23:09)
[2024-06-05] MEDS: fentaNYL citrate PF 100 MCG/2 ML VIAL ONE (23:09)
[2024-06-05] MEDS: HEPARIN (PORCINE) 1000 UNIT/ML 10 ML (CATH LAB USE ONLY) ONE (23:11)
[2024-06-05] MEDS: FUROSEMIDE 40 MG/4 ML VIAL IV ONE (23:12)
[2024-06-05] MEDS: OPTIRAY 350 ONE (23:12)
--- NOTE | 2024-06-05 23:20 | Post Anesthesia Assessment ---
Date of Service June 05, 2024 Post Sedation Assessment Vital Signs Temp Pulse Resp BP Pulse Ox O2 Del Method O2 Flow Rate 06/05/24 22:15 105 H 20 148/86 H 96 Nasal Cannula 2 06/05/24 21:52 68 06/05/24 21:38 103 H 18 95 Nasal Cannula 2 06/05/24 21:38 95 Nasal Cannula 2 06/05/24 21:38 98.4 F 103 H 18 128/83 95 Nasal Cannula 2 Recovery Score Activity: Moves 4 extremities Respiration: Deep Breath/Cough Circulation: +/-20% PreAnes Value Consciousness: Fully Awake Oxygen Saturation: O2 needed for >90% Discharge Sedation Level of Care: Higher Level of Care Post Sedation Plan On clinical assessment, the patient appears to have tolerated the sedation without complications. Patient is recovering as anticipated. Patient will continue to be monitored by nursing and may be discharged when sedation discharge criteria are met per below protocol. Upon Completions of procedure up to 15 minutes continue every 5 minute vital signs and the P.A.R. score; then discharge to a Phase I or Fast Track to Phase II per the following guidelines: * Discharge Patient to appropriate Phase II area if PAR is 8 or greater or return to pre- procedure baseline. The post - procedure orders will be as directed. * If PAR score is less than 8 or not return to pre-procedure baseline then patient will follow Phase I monitoring till PAR is reached for Phase II. The Phase I may be done in procedure room or may call to secure a Phase I area. * If naloxone or flumazenil are used for reversal, hold in Phase I for continued monitoring from when last reversal dose was given for a minimum of 60 minutes or longer pending the nurse and/or physician discretion of patient condition before discharge to Phase II. Please call the Sedation Physician to re-evaluate and complete post-note for discharge to Phase II area. Do NOT discharge from procedure sedation or Phase 1 until post- sedation evaluation note is complete by procedure /sedation MD Sedation Discharge Instructions to be given to the patient at discharge to home.
--- NOTE | 2024-06-05 23:23 | Cardiac Catheterization ---
[facility] Data: Colorist Photography Cardiac Status Clinical evaluation leading to the procedure CAD Presenation: STEMI Anginal Classification: CCS IV Diagnostic Physicians Name: Tony Baker MD Closure Device Recommendations: PCI without planned CABG Cardiac Cath Procedure Full Procedure Date June 05, 2024 Pre-Procedure Diagnosis Pre-Procedure Diagnosis: STEMI AUC Score AUC Score: 9 Post-Procedure Diagnosis Post-Procedure Diagnosis: Severe CAD, Successful PCI and Elevated Intracardiac Pressures Procedure(s) Performed Procedure(s) Performed: Coronary Angiography, Left Heart Cath, Drug Eluting Stent and IVUS Automotive Lot Attendant Tony Baker MD Trust Administrator(s) Emily Estimated Blood Loss Estimated Blood Loss: 25 Medication(s) Medication(s): Fentanyl, Heparin, Integrilin, Lidocaine 1%, Nicardipine, Nitroglycerin and Versed Medication(s): Ticagrelor Summary of Findings Indication: STEMI/Heart Alert Access: 6 Fr slender right radial artery Catheters: EBU 3.5 guide, diagnostic JR4 Findings: LM -normal caliber, luminal irregularities LAD -medium caliber vessel, 100% acute proximal occlusion. Mid to distal vessel after reestablish flow without significant disease and wraps around apex. D2 a ppears chronically occluded with left to left collaterals. Circumflex -medium caliber, 30 to 40% mid segment stenosis medium OM 2 and left PLB without significant disease. RCA -dominant, large caliber, 30% mid segment disease, 40-50% distal stenosis involving takeoff of PDA. Remainder of PDA, PLB without significant disease. LVEDP -36 -- PCI -- Antithrombotic therapy: Heparin, ticagrelor, Integrilin Procedure: Left main cannulated with EBU 3.5 guide Laborer Rags 50 wire passed across lesion into distal vessel Proximal LAD lesion predilated with 2.5 compliant balloon [id number] IVUS catheter placed to mid LAD. Pullback revealed severe proximal disease with heavy thrombus burden, minimal calcification. No significant left main disease Dilated lesion stented with 3.0 x 26 mm Chacorta CORINNE Stent post-dilated with 3.5 noncompliant balloon IC vasodilators administered for spasm Repeat IVUS showed well apposed stent with some mild thrombus in midportion of stent, potentially underexpanded proximally Noted to have some dye hang up in what appeared to be distribution of now jailed D2. Also appeared to have faint left to left collaterals to that vessel. Multiple attempts made to pass wire across the stent struts into D2 were unsuccessful Stent further postdilated with 4.0 NC balloon Repeat IVUS showed well-expanded, well apposed stent with no apparent edge complications. Did have evidence of mild haziness in midportion of stent and apparent thrombus in that area on IVUS with sluggish apical flow Given IC Integrilin and additional IC vasodilators with improved LAD flow. Mild residual dye staining at proximal aspect of questionable D2 Post procedure SWATI 3 flow, stent well expanded with minimal residual stenosis and no apparent cardiac complications. Arterial Closure: TR band Summary: 1. Anterior STEMI/acute 100% proximal LAD occlusion with heavy thrombus burden 2. Mild to moderate non-culprit coronary artery disease -30% mid circumflex 30% mid RCA, 40 to 50% distal RCA involving takeoff of RPDA 100% chronic occlusion of second diagonal. Partially fills retrograde via left to left collateral 3. Elevated intracardiac filling pressure 4. Successful PCI of proximal to mid LAD with single drug-eluting stent (3.0 x 26 mm Chacorta; postdilated with 4.0 NC proximally). Recommendations: Admit to ICU for continued monitoring Loaded with ticagrelor 180 mg in ED IC Integrilin for 8 hours Given IV Lasix 40 mg x 1 in Colorist Photography Continue dual-antiplatelet therapy for at least 1 year. Trend troponins until peak, Check Echo Uptitrate beta-edwar/PIYUSH as BP allows High-dose statin Consult cardiac Rehab Hemodynamics Rest Ao:: 123/72/96 Final Ao: 127/71/96 LV: 122/36 Recommendations Recommendations: PCI without planned CABG Specimens Specimens: None Radiation Exposure (mGy) 3940 Contrast (mls) 125 Anesthesia Moderate 6340-6321 Procedural Complication(s) None Disposition ICU I attest to the content of the Intraoperative Record and any orders documented therein. Any exceptions are noted below. [facility] Card Cath Procedure Codes Cardiac Catheterization Procedure 1: Cardiovascular Cath Procedures: 08683 Coronaries and LHC (+/-LV) Moderate Sedation Procedure 1: Sedation/Anesthesia: 47068 Mod Sedation by the same physician;Init15 Min Child Age 5 & Up Procedure 2: Sedation/Anesthesia: 69131 Mod Sedation by the same physician; Ea Add [id number] Minutes Stenting Procedure 1: Cardiovascular Stent Procedures: 65084 Perc transluminal revascularization of acute sub/total occl, aMI PG Care Time/CCT Total # of Minutes Spent Total Time Spent with Patient: Total time spent is greater than 50% in coordination of care (as documented) at patient's floor/unit and/or counseling patient:
[2024-06-05] MEDS ORDERED: EPTIFIBATIDE BOLUS/DRIP IV STA (23:37)
[2024-06-05] MEDS ORDERED: ACETAMINOPHEN 325 MG TAB PO PRN (23:37)
[2024-06-05] MEDS ORDERED: NITROGLYCERIN SL 0.4 MG/TAB TAB SL PRN (23:37)
[2024-06-05] MEDS: EPTIFIBATIDE 75 MG/100 ML VIAL IV SCH (23:45)
--- NOTE | 2024-06-05 23:53 | History & Physical Report ---
Date of Service June 05, 2024 Assessment & Plan (1) STEMI (ST elevation myocardial infarction): Plan: 68yo female with history of HTN, statin-intolerant HLP presenting with acute onset substernal chest pain. Found to have acute anterior STEMI. Patient taken to the paint laboratory technician and found to have 100% proximal LAD occlusion s/p CORINNE x 1 Received Ticagrelor 180mg in the ER -Admit to MICU -Trend troponin -Check 2D echo -Check lipid panel and HgbA1C for risk stratification -Continue DAPT with ASA and Brillinta x 1 year -Continue Integrillin x 8 hours -Metoprolol 12.5mg po BID -Lisinopril 5mg po daily -Crestor 20mg po daily (2) Benign hypertension: Plan: Chronic. -Increasing Metoprolol and Lisinopril as tolerated -Monitor Admission and Anticipated Discharge Date Admission Date: June 05, 2024 History of Present Illness Chief Complaint: chest pain Primary Care Provider: SHELBY Cuevas Edelmira Mendieta is a 68yo female with history of HTN, HLP and Obesity presenting with acute onset of substernal chest pressure around 16:00. Patient reports she was doing some light housework when she developed chest pain. Patient presented by EMS. Administered ASA, Nitro x 5 sprays, Oxygen and Fentanyl prior to arrival. Still with chest pain upon arrival. EKG with evidence of anterior/septal STEMI Troponin elevated Administered Ticagrelor 180mg, Dilaudid 1mg, Heparin 5000u, Heart Alert activated and patient taken urgently for cardiac catheterization. Patient found to have 100% proximal LAD occlusion with heavy thrombus burden with mild to moderate CAD elsewhere (30% mid-circumflex, 30% mid RCA, 40-50% distal RCA and 100% chronic occlusion of second diagonal). CORINNE x 1 placed to proximal to mid LAD Patient did have high cardiac pressures, was administered Lasix 40mg IV x 1 dose in the paint laboratory technician Allergies Allergy/AdvReac Type Severity Reaction Status Date / Time house dust Allergy Mild Congested Verified 08/23/23 15:03 Xtsdniz-PLP-EkJ Reductase AdvReac Intermediate Back Pain Verified 08/23/23 15:03 Inhibitor [Ishzjyz-Bxx-Sis Reductase Inhibitor] Home Medications Medication Instructions Recorded Confirmed Type cholecalciferol (vitamin D3) 50 2,000 units PO DAILY 05/12/19 06/05/24 History mcg (2,000 unit) capsule cyanocobalamin (vitamin B-12) 1,000 mcg PO DAILY 05/12/19 06/05/24 History 1,000 mcg tablet,extended release metoprolol succinate 25 mg 25 mg PO QAM #90 tabs 03/26/24 06/05/24 Rx tablet,extended release 24 hr omega 7-jhz-pkk-fish oil 1,000 mg 1 cap PO DAILY 06/05/24 06/05/24 History (120 mg-180 mg) capsule (Fish Oil) Past Med/Surg History Problem List STEMI (ST elevation myocardial infarction) (Acute) COVID-19 Bilateral knee pain Lipoma Statin intolerance Osteoarthritis Arthralgia of multiple sites (Chronic) Hyperlipidemia (Chronic) cannot shen statins or zetia Palpitations REASON FOR METOPROLOL Benign hypertension (Chronic) Medical History Urinary symptom or sign Osteoarthritis Urinary, incontinence, stress female Hx of pancreatitis GERD (gastroesophageal reflux disease) Surgical History History of anesthesia reaction WAS TOLD WITH ERCP "HAD DIFFICULT TIME GETTING PUT UNDER". History of ERCP History of dilatation and curettage "MULTIPLE TIMES" History of total abdominal hysterectomy History of cholecystectomy History of tooth extraction Family History Mother Family history of diabetes mellitus Myocardial infarction Father Myocardial infarction Denies family history of Ovarian cancer Prostate cancer Breast cancer Colorectal cancer Social History Smoking Status: Never smoker Second Hand Exposure: No; Do You Dip or Chew Tobacco: No; Hx Alcohol Use: Yes (Holidays) Alcohol type: beer, wine and hard liquor Hx Substance Use: No Preferred Language: Yakut Communication Ability: Effective Citrus Peeler Required: No Beliefs That Will Affect Care: None marital status: Current Living Situation: Spouse Current Living Situation Comment: lives with spouse current occupational status: employed current occupation: works at [employer] How many Children do You have: 1 Feels Safe at Home: Yes Safety Concerns: Feels Safe At This Time Childhood Exposure to Second-Hand Smoke: Yes (both mother and father smokes ) Diet: regular caffeine: Yes (1 cup coffee a day ) Dental Care, Regularly: Yes Physical Activity Frequency: 5-6 Times per Week Seatbelt Use: always Sunscreen Use: Yes Assistive Devices: Glasses Review of Systems Review of Systems: All systems reviewed & are unremarkable except as noted in HPI & below Physical Exam Physical Exam: General: patient seen int he ER - in distress secondary to ongoing chest pain Skin: warm, dry, intact, no rashes or lesions HEENT: NC/AT, PERRL, EOMI, anicteric sclera, conjunctiva without injection, external ear normal to inspection and nontender, nares patent, moist mucus membranes, dentition intact, no oropharyngeal lesions, neck supple, trachea midline, no LAD, no thyromegaly, no JVD Heart: +S1/S2, regular, no m/r/g Lungs: equal air entry bilaterally, no rales/rhonchi/wheezes Abd: +BS, soft, NT/ND, no masses/organomegaly/ascites Ext: warm, 2+ pulses in UE/LE bilaterally, no clubbing/cyanosis or edema Neuro: grossly nonfocal Results & Data Results & Data Vital Signs (Past 12 Hours) Vital Signs Temp Pulse Resp BP Pulse Ox O2 Del Method O2 Flow Rate 06/05/24 22:15 105 H 20 148/86 H 96 Nasal Cannula 2 06/05/24 21:52 68 06/05/24 21:38 103 H 18 95 Nasal Cannula 2 06/05/24 21:38 95 Nasal Cannula 2 06/05/24 21:38 36.9 C 103 H 18 128/83 95 Nasal Cannula 2 Laboratory Results Laboratory Results WBC 18.67 K/ul (4.8-10.8) H 06/05/24 21:57 RBC 4.76 M/uL (4.20-5.40) 06/05/24 21:57 Hgb 13.3 g/dl (12.0-16.0) 06/05/24 21:57 POC Hgb 13.6 g/dl (12.0-16.0) 06/05/24 22:02 Hct 41.0 % (37.0-47.0) 06/05/24 21:57 POC Hct 40 % (37-47) 06/05/24 22:02 MCV 86.1 fL (80.0-100.0) 06/05/24 21:57 MCH 27.9 pg (25.0-34.0) 06/05/24 21:57 MCHC 32.4 g/dL (32.0-36.0) 06/05/24 21:57 RDW Std Deviation 39.0 fL (36.4-46.3) 06/05/24 21:57 RDW Coeff of Tiffanie 12.4 % (11.5-14.5) 06/05/24 21:57 Plt Count 275 K/uL (130-400) 06/05/24 21:57 MPV 9.3 fL (9.4-12.4) L 06/05/24 21:57 Immature Gran % (Auto) 0.4 % 06/05/24 21:57 Neut % (Auto) 84.5 % 06/05/24 21:57 Lymph % (Auto) 12.6 % 06/05/24 21:57 [place] % (Auto) 2.1 % 06/05/24 21:57 Eos % (Auto) 0.1 % 06/05/24 21:57 Baso % (Auto) 0.3 % 06/05/24 21:57 Neut # (Auto) 15.78 K/uL (1.40-6.50) H 06/05/24 21:57 Lymph # (Auto) 2.35 K/uL (1.20-3.40) 06/05/24 21:57 [place] # (Auto) 0.40 K/uL (0.11-0.59) 06/05/24 21:57 Eos # (Auto) 0.02 K/uL (0.00-0.50) 06/05/24 21:57 Baso # (Auto) 0.05 K/uL (0.00-0.20) 06/05/24 21:57 Immature Gran # (Auto) 0.07 K/uL (0.01-0.20) 06/05/24 21:57 PT Cancelled 06/05/24 21:57 INR Cancelled 06/05/24 21:57 APTT Cancelled 06/05/24 21:57 PTT Ratio Cancelled 06/05/24 21:57 Activ Coag Time Kaolin 287 SECONDS (94-140) H 06/05/24 22:32 POC Sodium 141 mmol/L (135-144) 06/05/24 22:02 Sodium 141 mmol/L (136-145) 06/05/24 21:57 POC Potassium 3.5 mmol/L (3.3-5.0) 06/05/24 22:02 Potassium 3.6 mmol/L (3.5-5.1) 06/05/24 21:57 POC Chloride 107 mmol/L (101-112) 06/05/24 22:02 Chloride 106 mmol/L (98-107) 06/05/24 21:57 Carbon Dioxide 22 mmol/L (21-32) 06/05/24 21:57 POC Total CO2 22 mmol/L (24-31) L 06/05/24 22:02 Anion Gap 13 (3-11) H 06/05/24 21:57 POC Anion Gap 16.0 mmol/L (16-25) 06/05/24 22:02 POC BUN 17 mg/dl (7-18) 06/05/24 22:02 BUN 16 mg/dl (6-23) 06/05/24 21:57 Creatinine 0.76 mg/dl (0.6-1.2) 06/05/24 21:57 POC Creatinine 0.6 mg/dl (0.6-1.3) 06/05/24 22:02 Est Cr Clr Drug Dosing 77.0 ml/min 06/05/24 21:57 eGFR 84.24 06/05/24 21:57 BUN/Creatinine Ratio 21.1 (10-20) H 06/05/24 21:57 Glucose 250 mg/dl (70-99(Fasting)) H 06/05/24 21:57 POC Glucose (other) 245 mg/dl (70-99) H 06/05/24 22:02 Calcium 9.4 mg/dl (8.6-10.3) 06/05/24 21:57 POC Ioniz Calcium Anne-Marie 1.14 mmol/l (1.12-1.32) 06/05/24 22:02 Magnesium 1.6 mg/dl (1.7-2.4) L 06/05/24 21:57 Total Bilirubin 0.4 mg/dl (0.2-1.0) 06/05/24 21:57 AST 26 U/L (13-39) 06/05/24 21:57 ALT 18 U/L (7-52) 06/05/24 21:57 Alkaline Phosphatase 101 U/L (34-104) 06/05/24 21:57 Total Creatine Kinase 250 U/L (26-192) H 06/05/24 21:57 Troponin I High Sens 709.9 pg/ml (0-14) H* 06/05/24 21:57 B-Natriuretic Peptide 68 pg/ml (0-100) 06/05/24 21:57 Total Protein 6.7 gm/dl (6.0-8.3) 06/05/24 21:57 Albumin 4.2 gm/dl (3.4-5.0) 06/05/24 21:57 Globulin 2.5 gm/dl (2.5-4.0) 06/05/24 21:57 Albumin/Globulin Ratio 1.7 (0.9-2) 06/05/24 21:57 Lipase 8 U/L (11-82) L 06/05/24 21:57 TSH 2.174 uIu/ml (0.300-4.500) 06/05/24 21:57 Impressions Chest X-Ray 06/05/24 21:38 Exam(s): XR CXR 1 VIEW EXAM: XR Chest, 1 View CLINICAL HISTORY: Reason for exam: Chest pain, nonspecific. TECHNIQUE: Frontal view of the chest. COMPARISON: Prior chest x-ray from January 31, 2017. FINDINGS: Lungs: Moderate to heavy peribronchial thickening of the central and peripheral bronchi with increased interstitial opacities throughout the lungs. No consolidation. Pleural space: Unremarkable. No pneumothorax. Heart: Unremarkable. No cardiomegaly. Mediastinum: Unremarkable. Normal mediastinal contour. Bones/joints: Unremarkable. No acute fracture. IMPRESSION: Findings concerning for atypical pneumonia. No evidence of consolidation or pleural effusion.. Electronically signed by: Yessenia Wagoner MD 06/06/24 00:20 AM PG Care Time/CCT Total # of Minutes Spent Total Time Spent with Patient: Total time spent is greater than 50% in coordination of care (as documented) at patient's floor/unit and/or counseling patient: Coding Level of Care Code 99357 INT INP/OBS CARE 3/75MIN Diagnoses STEMI (ST elevation myocardial infarction) I21.3 Benign hypertension I10
[2024-06-05] MEDS ORDERED: MoRPHine SULFATE 2 MG/ML CARP IV PRN (23:57)
--- NOTE | 2024-06-06 00:10 | Critical Care Consultation ---
Date of Consultation June 06, 2024 Assessment & Plan (1) STEMI (ST elevation myocardial infarction): EKG with anterior pattern ST elevation. Given heparin and ASA in the emergency department and taken for cardiac catheterization where she received CORINNE x 1 to the LAD for 100% occlusion. Noted to have high filling pressures and given Lasix x 1 dose. Also noted to have large clot burden and started on Integrilin drip. Admitted to ICU post cath - Continuous monitoring on telemetry - Maximize electrolytes -Follow-up TTE in a.m. -Continue Integrilin drip x 8 hours per cardiology recommendations -Trend troponin for peak - Brilinta, ASA, metoprolol, lisinopril, Crestor -Will follow-up cardiology further recommendations (2) Hyperlipidemia: History of statin intolerance. Continue Crestor (3) Benign hypertension: Continue MTP. Starting on lisinopril History of Present Illness Attending Physician: Cherie Dempsey DO History of Present Illness Patient is a 68-year-old female with past medical history of HTN who presented with chest pressure around 1600 that progressively got worse. She called 911 around 1800, And presented to the emergency department where she was found to have ST elevation in anterior leads. Heart alert was initiated and she was taken to the Science Professor where she was found to have 100% occlusion of the LAD with heavy thrombus burden. She received PCI with CORINNE x 1 to the proximal mid LAD. She also received IV Lasix, and was placed on Integrilin drip. On arrival to the ICU the patient is alert and oriented without acute distress. She is hemodynamically stable and maintaining oxygen saturations on room air. She denies further chest pain, shortness of breath, palpitations, radiation of pain to arm or neck. She denies recent illness or fevers, cough or congestion, headaches or dizziness, changes in vision, numbness or tingling, abdominal pain, nausea or vomiting or diarrhea, swelling in hands or feet, changes in urinary stream or frequency. Patient to remain in ICU for further management at this time. Allergies Allergy/AdvReac Type Severity Reaction Status Date / Time house dust Allergy Mild Congested Verified 08/23/23 15:03 Iayzqan-ADD-BsL Reductase AdvReac Intermediate Back Pain Verified 08/23/23 15:03 Inhibitor [Lvegwwi-Lra-Dcd Reductase Inhibitor] Home Medications Medication Instructions Recorded Confirmed Type cholecalciferol (vitamin D3) 50 2,000 units PO DAILY 05/12/19 06/05/24 History mcg (2,000 unit) capsule cyanocobalamin (vitamin B-12) 1,000 mcg PO DAILY 05/12/19 06/05/24 History 1,000 mcg tablet,extended release metoprolol succinate 25 mg 25 mg PO QAM #90 tabs 03/26/24 06/05/24 Rx tablet,extended release 24 hr omega 4-osm-qss-fish oil 1,000 mg 1 cap PO DAILY 06/05/24 06/05/24 History (120 mg-180 mg) capsule (Fish Oil) Patient History Medical History Urinary symptom or sign Osteoarthritis Urinary, incontinence, stress female Hx of pancreatitis GERD (gastroesophageal reflux disease) Surgical History History of anesthesia reaction WAS TOLD WITH ERCP "HAD DIFFICULT TIME GETTING PUT UNDER". History of ERCP History of dilatation and curettage "MULTIPLE TIMES" History of total abdominal hysterectomy History of cholecystectomy History of tooth extraction Family History Mother Family history of diabetes mellitus Myocardial infarction Father Myocardial infarction Denies family history of Ovarian cancer Prostate cancer Breast cancer Colorectal cancer Social History Smoking Status: Never smoker Second Hand Exposure: No; Do You Dip or Chew Tobacco: No; Hx Alcohol Use: Yes (Holidays) Alcohol type: beer, wine and hard liquor Hx Substance Use: No Preferred Language: Tamazight Communication Ability: Effective Auto Apprentice Mechanic Required: No Beliefs That Will Affect Care: None marital status: Current Living Situation: Spouse Current Living Situation Comment: lives with spouse current occupational status: employed current occupation: works at [employer] How many Children do You have: 1 Feels Safe at Home: Yes Safety Concerns: Feels Safe At This Time Childhood Exposure to Second-Hand Smoke: Yes (both mother and father smokes ) Diet: regular caffeine: Yes (1 cup coffee a day ) Dental Care, Regularly: Yes Physical Activity Frequency: 5-6 Times per Week Seatbelt Use: always Sunscreen Use: Yes Assistive Devices: Glasses Review of Systems Review of Systems: All systems reviewed & are unremarkable except as noted in HPI & below Physical Exam Constitutional: cooperative and comfortable Eyes: PERRL, conjunctivae normal, anicteric sclerae ENMT: external ear and nose normal, oropharynx normal Neck: trachea midline, no thyromegaly Respiratory: normal respiratory effort, lungs clear to auscultation Cardiovascular: RRR, no murmur, no edema Heart Sounds: normal S1 and normal S2; no murmur Extremities: no edema Gastrointestinal (Abdomen): normal bowel sounds, soft, nontender, no hepatosplenomegaly Musculoskeletal: no cyanosis or clubbing, extremities motor strength 5/5 Skin: no rashes, warm and dry Neurologic: PERRL, EOMI, accommodation nl, no face palsy, no dysarthria Psychiatric: A+Ox3, euthymic affect Results & Data Results & Data Vital Signs (Past 12 Hours) Vital Signs Temp Pulse Resp BP Pulse Ox O2 Del Method O2 Flow Rate 06/06/24 00:06 96 H 24 98 06/06/24 00:06 145/89 H 06/06/24 00:03 101 H 17 92 06/05/24 23:51 98 H 15 94 06/05/24 23:45 104 H 23 92 06/05/24 23:30 111 H 17 95 06/05/24 23:27 111 H 15 70 L 06/05/24 22:15 105 H 20 148/86 H 96 Nasal Cannula 2 06/05/24 22:00 128/83 06/05/24 22:00 36.3 C L 128/83 06/05/24 21:52 68 06/05/24 21:38 103 H 18 95 Nasal Cannula 2 06/05/24 21:38 95 Nasal Cannula 2 06/05/24 21:38 36.9 C 103 H 18 128/83 95 Nasal Cannula 2 Coding Level of Care Code 60820 IN/OBS CONSULT LVL 3,45M Diagnoses STEMI (ST elevation myocardial infarction) I21.3 Mixed hyperlipidemia E78.2 Hyperlipidemia type: mixed hyperlipidemia Benign hypertension I10 Time Spent (min) 54 (2) Hyperlipidemia Hyperlipidemia type: mixed hyperlipidemia Qualified Code(s): E78.2 - Mixed hyperlipidemia
--- NOTE | 2024-06-06 00:21 | XRay Report ---
Exam(s): XR CXR 1 VIEW EXAM: XR Chest, 1 View CLINICAL HISTORY: Reason for exam: Chest pain, nonspecific. TECHNIQUE: Frontal view of the chest. COMPARISON: Prior chest x-ray from January 31, 2017. FINDINGS: Lungs: Moderate to heavy peribronchial thickening of the central and peripheral bronchi with increased interstitial opacities throughout the lungs. No consolidation. Pleural space: Unremarkable. No pneumothorax. Heart: Unremarkable. No cardiomegaly. Mediastinum: Unremarkable. Normal mediastinal contour. Bones/joints: Unremarkable. No acute fracture. IMPRESSION: Findings concerning for atypical pneumonia. No evidence of consolidation or pleural effusion.. Electronically signed by: Yessenia Wagoner MD 06/06/24 00:20 AM
[2024-06-06 00:56] LABS: INR 1.1 (0.9-1.1); Partial Thromboplastin Ratio > 4.9; Prothrombin Time 11.5 Seconds (9.0-12.0)
[2024-06-06 01:27] LABS: Partial Thromboplastin Time > 139 Seconds (21-31)
[2024-06-06 05:00] LABS: Hematocrit (blood only) 41.7 % (37.0-47.0); Hemoglobin 13.4 g/dl (12.0-16.0); Mean Corpuscular Hemoglobin 27.7 pg (25.0-34.0); Mean Corpuscular Hgb Conc 32.1 g/dL (32.0-36.0); Mean Corpuscular Volume 86.3 fL (80.0-100.0); Mean Platelet Volume 9.3 fL (9.4-12.4); Platelet Count 224 K/uL (130-400); RDW Coefficient of Variation 12.6 % (11.5-14.5); RDW Standard Deviation 39.6 fL (36.4-46.3); Red Blood Count 4.83 M/uL (4.20-5.40); White Blood Count 16.55 K/ul (4.8-10.8)
[2024-06-06 05:16] LABS: BUN Creatinine Ratio 19.8 (10-20); Calcium 9.2 mg/dl (8.6-10.3); Chol HDL Ratio 4.2 (0-5); Creatinine Clr Calc Pharmacy 55.4 ml/min; Potassium 4.7 mmol/L (3.5-5.1)
[2024-06-06 05:27] LABS: Basophils # (auto) 0.03 K/uL (0.00-0.20); Basophils % (auto) 0.2 %; Immature Granulocytes # (auto) 0.06 K/uL (0.01-0.20); Immature Granulocytes % (auto) 0.4 %; Lymphocytes # (auto) 0.96 K/uL (1.20-3.40); Lymphocytes % (auto) 5.8 %; Monocytes # (auto) 0.34 K/uL (0.11-0.59); Monocytes % (auto) 2.1 %; Neutrophils # (auto) 15.16 K/uL (1.40-6.50); Neutrophils % (auto) 91.5 %; RBC Morphology Unremarkable
[2024-06-06 06:14] LABS: Troponin I High Sensitivity 166641.5 pg/ml (0-14)
[2024-06-06 07:10] LABS: Estimated Average Glucose 157 mg/dl; Hemoglobin A1C 7.1 % (4.5-5.6)
[2024-06-06] MEDS ORDERED: GLUCAGON FOR INJ 1 MG VIAL SQ PRN (07:20)
[2024-06-06] MEDS ORDERED: GLUCOSE 10 TAB/TUBE PO PRN (07:20)
[2024-06-06] MEDS ORDERED: GLUCOSE 40% GEL 15 GM TUBE PO PRN (07:20)
[2024-06-06] MEDS ORDERED: CARBOHYDRATES FOR HYPOGLYCEMIA PO PRN (07:20)
[2024-06-06] MEDS ORDERED: DEXTROSE 50% 50 ML SYRINGE IV PRN (07:20)
[2024-06-06] MEDS: ICU Protocol for HYPERglycemia SCH (07:54)
[2024-06-06] MEDS: ASPIRIN 81 MG ECTAB PO SCH (08:13)
[2024-06-06] MEDS: lisinopril 5 MG TAB PO SCH (08:13)
[2024-06-06] MEDS: PANTOprazole 40 MG TAB PO SCH (08:13)
[2024-06-06] MEDS: METOPROLOL TARTRATE 25 MG TAB PO SCH ×2 (08:13→20:49)
[2024-06-06] MEDS: INSULIN ASPART PER UNIT CHARGE SC SCH (08:18)
[2024-06-06] MEDS: ROSUVASTATIN CALCIUM 20 MG TAB PO SCH (08:40)
[2024-06-06 08:41] LABS: Magnesium 1.5 mg/dl (1.7-2.4)
--- NOTE | 2024-06-06 09:03 | Electrocardiogram Report ---
Test Reason : Blood Pressure : */* mmHG Vent. Rate : 100 BPM Atrial Rate : 100 BPM P-R Int : 154 ms QRS Dur : 68 ms QT Int : 372 ms P-R-T Axes : 52 70 -30 degrees QTcB Int : 479 ms Sinus rhythm with Premature supraventricular complexes Acute Anteroseptal infarct with reciprocal ST depression Abnormal ECG When compared with ECG of 31-Jan-2017 12:26, ST elevation in Anteroseptal leads now present ST depression in multiple leads now present Confirmed by Jose Alberto Khalil ([id number]) on 06/06/2024 9:03:16 AM Referred By: Cheire Dempsey Confirmed By: Jose Alberto Khalil
--- NOTE | 2024-06-06 09:04 | Electrocardiogram Report ---
Test Reason : Blood Pressure : */* mmHG Vent. Rate : 98 BPM Atrial Rate : 98 BPM P-R Int : 150 ms QRS Dur : 82 ms QT Int : 394 ms P-R-T Axes : 58 65 26 degrees QTcB Int : 503 ms Normal sinus rhythm Acute Anteroseptal infarct (cited on or before 05-Jun-2024) Diffuse Nonspecific ST abnormality Abnormal ECG When compared with ECG of 05-Jun-2024 21:49, Premature supraventricular complexes are no longer Present Serial changes of evolving Anteroseptal infarct Present (anteroseptal ST elevation nearly resolved) Confirmed by Jose Alberto Khalil ([id number]) on 06/06/2024 9:04:44 AM Referred By: Cherie Dempsey Confirmed By: Jose Alberto Khalil
[2024-06-06] MEDS: MAGNESIUM SULFATE / D5W 1 GM/100 ML BAG IV SCH (09:26)
--- NOTE | 2024-06-06 09:38 | XCELERA ---
[id number] \\[id number]
--- NOTE | 2024-06-06 09:45 | Hospitalist Progress Note ---
Date of Service June 06, 2024 Assessment & Plan (1) STEMI (ST elevation myocardial infarction): (2) CAD (coronary artery disease): (3) Hyperlipidemia: (4) Benign hypertension: (5) Type 2 diabetes mellitus: Plan 68-year-old female with past medical history of hypertension, hyperlipidemia, obesity who presented with acute onset of substernal chest pressure on 06/05/2024 while doing some light housework and was brought in by EMS and found to have elevated troponin with EKG showing STEMI #STEMI #Coronary artery disease #Essential hypertension #Hyperlipidemia with hypertriglyceridemia #Episode of V. tach: [address] Tony Baker saw the patient She underwent cardiac cath which showed Anterior STEMI/acute 100% proximal LAD occlusion with heavy thrombus burden, Mild to moderate non-culprit coronary artery disease, 30% mid circumflex, 30% mid RCA, 40 to 50% distal RCA involving takeoff of RPDA, 100% chronic occlusion of second diagonal. Partially fills retrograde via left to left collateral She had PCI of proximal to mid LAD with single drug-eluting stent on 06/05/2024 Troponin has gone from 709 on admission to 166,000 this morning Echo done: Results pending Triglyceride is 192 Cholesterol is 252 LDL is 154 VLDL is 38 HDL is 60 She is currently on dual antiplatelet therapy: Aspirin plus Brilinta for at least 1 year Continue Crestor 20 mg p.o. daily Magnesium level is 1.5: IV and oral magnesium replacement given V. tach Continue metoprolol 12.5 mg p.o. twice daily Continue lisinopril 5 mg p.o. daily Continue telemetry monitoring Patient will need cardiac rehab on discharge Await further cardiology recommendations #New diagnosis of type 2 diabetes mellitus A1c 7.1 Patient informed of diagnosis Pharmacy consult for glycemic control certified diabetes educator consult #Leukocytosis Patient is afebrile, denies any respiratory symptoms and denies any urinary symptoms COVID, influenza and RSV negative on admission Chest x-ray shows possible atypical pneumonia: Poor quality chest x-ray portable Check two-view chest x-ray Check urine analysis Elevated white count could be possibly related to STEMI Monitor white count CODE STATUS: Full code DVT prophylaxis: Start Lovenox 40 mg subcutaneous daily Care plan discussed with patient, nursing staff Admission and Anticipated Discharge Date Admission Date: June 05, 2024 Subjective Patient seen and examined H&P reviewed Labs reviewed Radiology reviewed Telemetry reviewed: Patient had episode of V. tach with 24 beats this morning Patient denies any chest pain, shortness of breath, nausea, vomiting, diarrhea, abdominal pain She denies any cough, fever, chills, urinary symptoms She is tolerating oral diet without any issues Social history: She denies tobacco use. Drinks alcohol very socially only. 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 She is independent of ADLs. She lives at home with her Physical Exam Physical Exam: General: No acute distress Psych: Awake and alert HEENT: Anicteric sclera, moist oral mucosa CVS: Regular rate and rhythm Lungs: Bilateral air entry, no wheezing noted Abdomen: Soft, nontender, no rebound, no guarding Ext: No lower extremity edema, no calf tenderness Neuro: No focal motor deficits noted Results & Data Results & Data Vital Signs (Past 12 Hours) Vital Signs Temp Pulse Resp BP Pulse Ox Pulse Ox O2 Del Method 06/06/24 08:10 36.5 C 06/06/24 08:06 101 H 12 100 06/06/24 08:00 132/95 06/06/24 07:50 Room Air 06/06/24 07:49 110 H 06/06/24 07:36 103 H 21 96 06/06/24 07:00 163/85 H 06/06/24 06:51 113 H 21 95 06/06/24 06:45 116 H 14 97 06/06/24 06:30 147/86 H 06/06/24 06:30 147/86 H 06/06/24 06:30 147/86 H 06/06/24 06:24 112 H 18 97 06/06/24 06:21 100 H 16 95 06/06/24 06:15 100 H 17 95 06/06/24 06:03 101 H 17 95 06/06/24 06:00 150/87 H 06/06/24 06:00 150/87 H 06/06/24 06:00 150/87 H 06/06/24 05:51 101 H 18 95 06/06/24 05:48 101 H 17 95 06/06/24 05:30 141/97 H 06/06/24 05:24 109 H 17 98 06/06/24 05:18 99 H 17 96 06/06/24 05:09 103 H 15 96 06/06/24 05:00 143/77 H 06/06/24 04:48 98 H 16 95 06/06/24 04:45 101 H 16 96 06/06/24 04:30 105 H 18 96 06/06/24 04:21 108 H 19 97 06/06/24 04:15 101 H 15 97 06/06/24 04:00 124/74 06/06/24 04:00 124/74 06/06/24 04:00 94 H 15 95 06/06/24 03:54 97 H 17 97 06/06/24 03:42 102 H 17 95 06/06/24 03:36 100 H 16 95 06/06/24 03:30 134/82 06/06/24 03:30 134/82 06/06/24 03:21 100 H 16 95 06/06/24 03:18 103 H 16 94 06/06/24 03:00 113 H 29 H 94 06/06/24 03:00 154/88 H 06/06/24 02:54 111 H 18 98 06/06/24 02:42 112 H 15 98 06/06/24 02:30 108 H 16 95 06/06/24 02:30 148/91 H 06/06/24 02:24 110 H 18 98 06/06/24 02:15 103 H 14 96 06/06/24 02:00 131/77 06/06/24 02:00 131/77 06/06/24 02:00 101 H 25 H 95 06/06/24 01:57 105 H 18 97 06/06/24 01:45 102 H 18 95 06/06/24 01:30 146/89 H 06/06/24 01:30 146/89 H 06/06/24 01:21 102 H 18 95 06/06/24 01:06 139 H 20 96 06/06/24 01:02 126/86 06/06/24 01:02 126/86 06/06/24 00:36 96 H 16 90 06/06/24 00:30 102 H 19 95 06/06/24 00:27 101 H 17 95 06/06/24 00:15 Nasal Cannula 06/06/24 00:12 102 H 20 94 06/06/24 00:06 145/89 H 06/06/24 00:06 96 H 24 98 06/06/24 00:06 145/89 H 06/06/24 00:03 101 H 17 92 06/06/24 00:00 100 H 06/05/24 23:51 98 H 15 94 06/05/24 23:45 104 H 23 92 06/05/24 23:41 94 06/05/24 23:30 111 H 17 95 06/05/24 23:30 16 95 Room Air 06/05/24 23:27 111 H 15 70 L 06/05/24 22:15 105 H 20 148/86 H 96 Nasal Cannula 06/05/24 22:00 128/83 06/05/24 22:00 36.3 C L 128/83 06/05/24 21:52 68 O2 Del Method O2 Flow Rate O2 Flow Rate 06/06/24 08:10 06/06/24 08:06 06/06/24 08:00 06/06/24 07:50 06/06/24 07:49 06/06/24 07:36 06/06/24 07:00 06/06/24 06:51 06/06/24 06:45 06/06/24 06:30 06/06/24 06:30 06/06/24 06:30 06/06/24 06:24 06/06/24 06:21 06/06/24 06:15 06/06/24 06:03 06/06/24 06:00 06/06/24 06:00 06/06/24 06:00 06/06/24 05:51 06/06/24 05:48 06/06/24 05:30 06/06/24 05:24 06/06/24 05:18 06/06/24 05:09 06/06/24 05:00 06/06/24 04:48 06/06/24 04:45 06/06/24 04:30 06/06/24 04:21 06/06/24 04:15 06/06/24 04:00 06/06/24 04:00 06/06/24 04:00 06/06/24 03:54 06/06/24 03:42 06/06/24 03:36 06/06/24 03:30 06/06/24 03:30 06/06/24 03:21 06/06/24 03:18 06/06/24 03:00 06/06/24 03:00 06/06/24 02:54 06/06/24 02:42 06/06/24 02:30 06/06/24 02:30 06/06/24 02:24 06/06/24 02:15 06/06/24 02:00 06/06/24 02:00 06/06/24 02:00 06/06/24 01:57 06/06/24 01:45 06/06/24 01:30 06/06/24 01:30 06/06/24 01:21 06/06/24 01:06 06/06/24 01:02 06/06/24 01:02 06/06/24 00:36 06/06/24 00:30 06/06/24 00:27 06/06/24 00:15 2 06/06/24 00:12 06/06/24 00:06 06/06/24 00:06 06/06/24 00:06 06/06/24 00:03 06/06/24 00:00 06/05/24 23:51 06/05/24 23:45 06/05/24 23:41 Nasal Cannula 2 06/05/24 23:30 06/05/24 23:30 06/05/24 23:27 06/05/24 22:15 2 06/05/24 22:00 06/05/24 22:00 06/05/24 21:52 Laboratory Results Laboratory Results - last 24 hr 06/05/24 06/05/24 06/05/24 21:57 22:02 22:32 WBC 18.67 H RBC 4.76 Hgb 13.3 POC Hgb 13.6 Hct 41.0 POC Hct 40 MCV 86.1 MCH 27.9 MCHC 32.4 RDW Std Deviation 39.0 RDW Coeff of Tiffanie 12.4 Plt Count 275 MPV 9.3 L Immature Gran % (Auto) 0.4 Neut % (Auto) 84.5 Lymph % (Auto) 12.6 Door % (Auto) 2.1 Eos % (Auto) 0.1 Baso % (Auto) 0.3 Neut # (Auto) 15.78 H Lymph # (Auto) 2.35 Door # (Auto) 0.40 Eos # (Auto) 0.02 Baso # (Auto) 0.05 Immature Gran # (Auto) 0.07 RBC Morphology PT Cancelled INR Cancelled APTT Cancelled PTT Ratio Cancelled Activ Coag Time Kaolin 287 H POC Sodium 141 Sodium 141 POC Potassium 3.5 Potassium 3.6 POC Chloride 107 Chloride 106 Carbon Dioxide 22 POC Total CO2 22 L Anion Gap 13 H POC Anion Gap 16.0 POC BUN 17 BUN 16 Creatinine 0.76 POC Creatinine 0.6 Est Cr Clr Drug Dosing 77.0 eGFR 84.24 BUN/Creatinine Ratio 21.1 H Glucose 250 H POC Glucose POC Glucose (other) 245 H Estimat Average Glucose Hemoglobin A1c Calcium 9.4 POC Ioniz Calcium Anne-Marie 1.14 Magnesium 1.6 L Total Bilirubin 0.4 AST 26 ALT 18 Alkaline Phosphatase 101 Total Creatine Kinase 250 H Troponin I High Sens 709.9 H* B-Natriuretic Peptide 68 Total Protein 6.7 Albumin 4.2 Globulin 2.5 Albumin/Globulin Ratio 1.7 Triglycerides Cholesterol LDL Cholesterol, Calc VLDL Cholesterol, Calc HDL Cholesterol Cholesterol/HDL Ratio Lipase 8 L TSH 2.174 Nasal Screen MRSA (PCR) 06/05/24 06/06/24 06/06/24 23:43 00:00 04:34 WBC 16.55 H RBC 4.83 Hgb 13.4 POC Hgb Hct 41.7 POC Hct MCV 86.3 MCH 27.7 MCHC 32.1 RDW Std Deviation 39.6 RDW Coeff of Tiffanie 12.6 Plt Count 224 MPV 9.3 L Immature Gran % (Auto) 0.4 Neut % (Auto) 91.5 Lymph % (Auto) 5.8 Door % (Auto) 2.1 Eos % (Auto) 0.0 Baso % (Auto) 0.2 Neut # (Auto) 15.16 H Lymph # (Auto) 0.96 L Door # (Auto) 0.34 Eos # (Auto) 0.00 Baso # (Auto) 0.03 Immature Gran # (Auto) 0.06 RBC Morphology Unremarkable PT 11.5 INR 1.1 APTT > 139 H* PTT Ratio > 4.9 Activ Coag Time Kaolin POC Sodium Sodium 139 POC Potassium Potassium 4.7 D POC Chloride Chloride 103 Carbon Dioxide 22 POC Total CO2 Anion Gap 14 H POC Anion Gap POC BUN BUN 18 Creatinine 0.91 POC Creatinine Est Cr Clr Drug Dosing 55.4 eGFR 67.87 BUN/Creatinine Ratio 19.8 Glucose 215 H POC Glucose POC Glucose (other) Estimat Average Glucose 157 Hemoglobin A1c 7.1 H Calcium 9.2 POC Ioniz Calcium Anne-Marie Magnesium 1.5 L Total Bilirubin AST ALT Alkaline Phosphatase Total Creatine Kinase Troponin I High Sens 93571.7 H* D 182316.5 H* D B-Natriuretic Peptide Total Protein Albumin Globulin Albumin/Globulin Ratio Triglycerides 192 H Cholesterol 252 H LDL Cholesterol, Calc 154 VLDL Cholesterol, Calc 38 H HDL Cholesterol 60 Cholesterol/HDL Ratio 4.2 Lipase TSH Nasal Screen MRSA (PCR) Negative 06/06/24 07:17 WBC RBC Hgb POC Hgb Hct POC Hct MCV MCH MCHC RDW Std Deviation RDW Coeff of Tiffanie Plt Count MPV Immature Gran % (Auto) Neut % (Auto) Lymph % (Auto) Door % (Auto) Eos % (Auto) Baso % (Auto) Neut # (Auto) Lymph # (Auto) Door # (Auto) Eos # (Auto) Baso # (Auto) Immature Gran # (Auto) RBC Morphology PT INR APTT PTT Ratio Activ Coag Time Kaolin POC Sodium Sodium POC Potassium Potassium POC Chloride Chloride Carbon Dioxide POC Total CO2 Anion Gap POC Anion Gap POC BUN BUN Creatinine POC Creatinine Est Cr Clr Drug Dosing eGFR BUN/Creatinine Ratio Glucose POC Glucose 184 H POC Glucose (other) Estimat Average Glucose Hemoglobin A1c Calcium POC Ioniz Calcium Anne-Marie Magnesium Total Bilirubin AST ALT Alkaline Phosphatase Total Creatine Kinase Troponin I High Sens B-Natriuretic Peptide Total Protein Albumin Globulin Albumin/Globulin Ratio Triglycerides Cholesterol LDL Cholesterol, Calc VLDL Cholesterol, Calc HDL Cholesterol Cholesterol/HDL Ratio Lipase TSH Nasal Screen MRSA (PCR) Diagnostic Findings Chest X-Ray 06/05/24 21:38 Exam(s): XR CXR 1 VIEW EXAM: XR Chest, 1 View CLINICAL HISTORY: Reason for exam: Chest pain, nonspecific. TECHNIQUE: Frontal view of the chest. COMPARISON: Prior chest x-ray from January 31, 2017. FINDINGS: Lungs: Moderate to heavy peribronchial thickening of the central and peripheral bronchi with increased interstitial opacities throughout the lungs. No consolidation. Pleural space: Unremarkable. No pneumothorax. Heart: Unremarkable. No cardiomegaly. Mediastinum: Unremarkable. Normal mediastinal contour. Bones/joints: Unremarkable. No acute fracture. IMPRESSION: Findings concerning for atypical pneumonia. No evidence of consolidation or pleural effusion.. Electronically signed by: Yessenia Wagoner MD 06/06/24 00:20 AM PG Care Time/CCT Total # of Minutes Spent Total Time Spent with Patient: Total time spent is greater than 50% in coordination of care (as documented) at patient's floor/unit and/or counseling patient: Coding Level of Care Code 88562 SUB INP/OBS CARE 350MIN Diagnoses STEMI (ST elevation myocardial infarction) I21.3 CAD (coronary artery disease) I25.10 Mixed hyperlipidemia E78.2 Hyperlipidemia type: mixed hyperlipidemia Benign hypertension I10 Type 2 diabetes mellitus E11.9 (3) Hyperlipidemia Hyperlipidemia type: mixed hyperlipidemia Qualified Code(s): E78.2 - Mixed hyperlipidemia
--- NOTE | 2024-06-06 10:30 | XRay Report ---
XR chest 2V PA/lateral HISTORY: 68 years-old Female abnormal portable cxr, stemi COMPARISON: 06/05/2024 TECHNIQUE: AP view of the chest FINDINGS: Cardiac silhouette is normal in size. Mild subsegmental bibasilar atelectasis. No pneumothorax, pleur al effusion or pulmonary edema. Cholecystectomy. Spondylotic spurring of the spine. IMPRESSION: No acute process. ACT 112: Negative or not required by law. The above report was generated using voice recognition software. It may contain grammatical, syntax o r spelling errors. Electronically signed by: Brant Edwards M.D. 06/06/2024 10:28 AM
--- NOTE | 2024-06-06 10:44 | Cardiology Progress Note ---
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 30% mid LCx, 30% mid RCA, 40-50% distal RCA/PDA 2. Ischemic cardiomyopathyEF 40 to 45%, anterior/apical wall motion abnormality 3. Nonsustained VT 4. Dyslipidemiahistory of statin intolerance 5. Borderline diabetes Looks well this morning. No recurrent chest pain. Hemodynamically stable No signs of heart failure on exam. No signs of elevated filling pressures on echo No apparent access site complications. Is having intermittent nonsustained VT. Continue DAPT with aspirin, ticagrelor Replete magnesium Increase metoprolol to 25 mg twice daily Continue current lisinopril Will try rosuvastatin. If recurrent joint symptoms long-term may need [id number] Start empagliflozin tomorrow From a cardiac standpoint okay with transfer to telemetry. Pending clinical course possible discharge tomorrow Admission and Anticipated Discharge Date Admission Date: June 05, 2024 Subjective Sitting up in the chair. Feeling well. Reports some chest fullness like "she ran a marathon yesterday." No recurrent chest pain. No difficulty breathing Telemetry reviewedepisodes of nonsustained VT, 1 episode this morning greater than 20 beats Echo reviewedEF 40 to 45% with anterior/apical wall motion abnormality. Review of Systems Review of Systems: All systems reviewed & are unremarkable except as noted in HPI & below Physical Exam Physical Exam: General: Comfortable HEENT: Sclerae anicteric Lungs: Clear to auscultation bilaterally, no crackles or wheezes Cardiac: Regular rate and rhythm, no murmurs. Vascular: Right radial artery access site with no ecchymosis, hematoma. Distal pulse and sensation intact. Abdomen: Soft, nontender Extremities: Well perfused, no peripheral edema Neuro: Nonfocal Psych: Alert orient x3, normal affect and mood Results & Data Vital Signs (Past 12 Hours) Vital Signs Temp Pulse Resp BP Pulse Ox Pulse Ox O2 Del Method 06/06/24 10:06 90 18 95 06/06/24 10:00 132/78 06/06/24 09:15 136/83 06/06/24 09:12 82 17 95 06/06/24 08:10 97.7 F 06/06/24 08:06 101 H 12 100 06/06/24 08:00 132/95 12/07/24 07:50 Room Air 06/06/24 07:49 110 H 06/06/24 07:36 103 H 21 96 06/06/24 07:00 163/85 H 06/06/24 06:51 113 H 21 95 06/06/24 06:45 116 H 14 97 06/06/24 06:30 147/86 H 06/06/24 06:30 147/86 H 06/06/24 06:30 147/86 H 06/06/24 06:24 112 H 18 97 06/06/24 06:21 100 H 16 95 06/06/24 06:15 100 H 17 95 06/06/24 06:03 101 H 17 95 06/06/24 06:00 150/87 H 06/06/24 06:00 150/87 H 06/06/24 06:00 150/87 H 06/06/24 05:51 101 H 18 95 06/06/24 05:48 101 H 17 95 06/06/24 05:30 141/97 H 06/06/24 05:24 109 H 17 98 06/06/24 05:18 99 H 17 96 06/06/24 05:09 103 H 15 96 06/06/24 05:00 143/77 H 06/06/24 04:48 98 H 16 95 06/06/24 04:45 101 H 16 96 06/06/24 04:30 105 H 18 96 06/06/24 04:21 108 H 19 97 06/06/24 04:15 101 H 15 97 06/06/24 04:00 124/74 06/06/24 04:00 124/74 06/06/24 04:00 94 H 15 95 06/06/24 03:54 97 H 17 97 06/06/24 03:42 102 H 17 95 06/06/24 03:36 100 H 16 95 06/06/24 03:30 134/82 06/06/24 03:30 134/82 06/06/24 03:21 100 H 16 95 06/06/24 03:18 103 H 16 94 06/06/24 03:00 113 H 29 H 94 06/06/24 03:00 154/88 H 06/06/24 02:54 111 H 18 98 06/06/24 02:42 112 H 15 98 06/06/24 02:30 108 H 16 95 06/06/24 02:30 148/91 H 06/06/24 02:24 110 H 18 98 06/06/24 02:15 103 H 14 96 06/06/24 02:00 131/77 06/06/24 02:00 131/77 06/06/24 02:00 101 H 25 H 95 06/06/24 01:57 105 H 18 97 06/06/24 01:45 102 H 18 95 06/06/24 01:30 146/89 H 06/06/24 01:30 146/89 H 06/06/24 01:21 102 H 18 95 06/06/24 01:06 139 H 20 96 06/06/24 01:02 126/86 06/06/24 01:02 126/86 06/06/24 00:36 96 H 16 90 06/06/24 00:30 102 H 19 95 06/06/24 00:27 101 H 17 95 06/06/24 00:15 Nasal Cannula 06/06/24 00:12 102 H 20 94 06/06/24 00:06 145/89 H 06/06/24 00:06 96 H 24 98 06/06/24 00:06 145/89 H 06/06/24 00:03 101 H 17 92 06/06/24 00:00 100 H 06/05/24 23:51 98 H 15 94 06/05/24 23:45 104 H 23 92 06/05/24 23:41 94 06/05/24 23:30 111 H 17 95 06/05/24 23:30 16 95 Room Air 06/05/24 23:27 111 H 15 70 L O2 Del Method O2 Flow Rate O2 Flow Rate 06/06/24 10:06 06/06/24 10:00 06/06/24 09:15 06/06/24 09:12 06/06/24 08:10 06/06/24 08:06 06/06/24 08:00 06/06/24 07:50 06/06/24 07:49 06/06/24 07:36 06/06/24 07:00 06/06/24 06:51 06/06/24 06:45 06/06/24 06:30 06/06/24 06:30 06/06/24 06:30 06/06/24 06:24 06/06/24 06:21 06/06/24 06:15 06/06/24 06:03 06/06/24 06:00 06/06/24 06:00 06/06/24 06:00 06/06/24 05:51 06/06/24 05:48 06/06/24 05:30 06/06/24 05:24 06/06/24 05:18 06/06/24 05:09 06/06/24 05:00 06/06/24 04:48 06/06/24 04:45 06/06/24 04:30 06/06/24 04:21 06/06/24 04:15 06/06/24 04:00 06/06/24 04:00 06/06/24 04:00 06/06/24 03:54 06/06/24 03:42 06/06/24 03:36 06/06/24 03:30 06/06/24 03:30 06/06/24 03:21 06/06/24 03:18 06/06/24 03:00 06/06/24 03:00 06/06/24 02:54 06/06/24 02:42 06/06/24 02:30 06/06/24 02:30 06/06/24 02:24 06/06/24 02:15 06/06/24 02:00 06/06/24 02:00 06/06/24 02:00 06/06/24 01:57 06/06/24 01:45 06/06/24 01:30 06/06/24 01:30 06/06/24 01:21 06/06/24 01:06 06/06/24 01:02 06/06/24 01:02 06/06/24 00:36 06/06/24 00:30 06/06/24 00:27 06/06/24 00:15 2 06/06/24 00:12 06/06/24 00:06 06/06/24 00:06 06/06/24 00:06 06/06/24 00:03 06/06/24 00:00 06/05/24 23:51 06/05/24 23:45 06/05/24 23:41 Nasal Cannula 2 06/05/24 23:30 06/05/24 23:30 06/05/24 23:27 PG Care Time/CCT Total # of Minutes Spent Total Time Spent with Patient: Total time spent is greater than 50% in coordination of care (as documented) at patient's floor/unit and/or counseling patient: Coding Level of Care Code 16489 SUB INP/OBS CARE 3/50MIN Diagnoses CAD (coronary artery disease) I25.10
[2024-06-06 11:06] LABS: Adenovirus PCR Not Detected (NotDetected); Bordetella parapertussis PCR Not Detected (NotDetected); Bordetella pertussis PCR Not Detected (NotDetected); Chlamydia pneumoniae PCR Not Detected (NotDetected); Coronavirus 229E PCR Not Detected (NotDetected); Coronavirus CoV-2 (COVID19)PCR Not Detected (NotDetected); Coronavirus HKU1 PCR Not Detected (NotDetected); Coronavirus NL63 PCR Not Detected (NotDetected); Coronavirus OC43PCR Not Detected (NotDetected); Human Metapneumovirus PCR Not Detected (NotDetected); Influenza A PCR Not Detected (NotDetected); Influenza B PCR Not Detected (NotDetected); Mycoplasma pneumoniae PCR Not Detected (NotDetected); Parainfluenza Virus 1 PCR Not Detected (NotDetected); Parainfluenza Virus 2 PCR Not Detected (NotDetected); Parainfluenza Virus 3 PCR Not Detected (NotDetected); Parainfluenza Virus 4 PCR Not Detected (NotDetected); Respiratory Syncytial VirusPCR Not Detected (NotDetected); Rhinovirus/Enterovirus PCR Not Detected (NotDetected)
[2024-06-06] MEDS: METOPROLOL TARTRATE 25 MG TAB PO ONE (11:47)
[2024-06-06 11:52] LABS: Appearance Urine Turbid (Clear); Bacteria Urine Automated None Seen (None Seen); Bilirubin Urine Negative (Negative); Blood Urine 3+ (Negative); Color Urine Yellow; Glucose Urine UA Negative (Negative); Ketones Urine Trace (Negative); Leukocyte Esterase Urine 1+ (Negative); Nitrite Urine Negative (Negative); Protein Urine 1+ (Negative); RBC Urine Automated >20 /hpf (0-2); Specific Gravity Urine 1.037 (1.000-1.030); Urobilinogen Urine Negative (Negative)
[2024-06-06] MEDS: ONDANSETRON INJ 2 MG/ML 2 ML VIAL IV PRN (14:23)
[2024-06-06] MEDS: PROCHLORPERAZINE 5 MG in SYRINGE 4 ML IV ONE (15:36)
[2024-06-06] MEDS: TICAGRELOR 90 MG TAB PO SCH (20:48)
[2024-06-06] MEDS: MAGNESIUM OXIDE 400 MG TAB PO SCH (20:49)
[2024-06-07 06:18] LABS: Basophils # (auto) 0.03 K/uL (0.00-0.20); Basophils % (auto) 0.2 %; Eosinophils # (auto) 0.05 K/uL (0.00-0.50); Eosinophils % (auto) 0.3 %; Hematocrit (blood only) 38.2 % (37.0-47.0); Hemoglobin 12.3 g/dl (12.0-16.0); Immature Granulocytes # (auto) 0.07 K/uL (0.01-0.20); Immature Granulocytes % (auto) 0.5 %; Lymphocytes # (auto) 1.68 K/uL (1.20-3.40); Mean Corpuscular Hemoglobin 27.6 pg (25.0-34.0); Mean Corpuscular Hgb Conc 32.2 g/dL (32.0-36.0); Mean Corpuscular Volume 85.8 fL (80.0-100.0); Mean Platelet Volume 9.5 fL (9.4-12.4); Monocytes # (auto) 0.67 K/uL (0.11-0.59); Monocytes % (auto) 4.4 %; Neutrophils # (auto) 12.77 K/uL (1.40-6.50); Neutrophils % (auto) 83.6 %; Platelet Count 217 K/uL (130-400); RDW Coefficient of Variation 12.8 % (11.5-14.5); RDW Standard Deviation 39.9 fL (36.4-46.3); Red Blood Count 4.45 M/uL (4.20-5.40); White Blood Count 15.27 K/ul (4.8-10.8)
[2024-06-07 06:32] LABS: BUN Creatinine Ratio 29.2 (10-20); Calcium 9.1 mg/dl (8.6-10.3); Creatinine Clr Calc Pharmacy 46.6 ml/min; Magnesium 2.5 mg/dl (1.7-2.4); Potassium 4.1 mmol/L (3.5-5.1)
[2024-06-07 07:06] LABS: Troponin I High Sensitivity 43221.9 pg/ml (0-14)
[2024-06-07] MEDS: ENOXAPARIN INJ 40 MG/0.4 ML SYR SQ SCH (08:01)
--- NOTE | 2024-06-07 11:24 | Cardiology Progress Note ---
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 30% mid LCx, 30% mid RCA, 40-50% distal RCA/PDA 2. Ischemic cardiomyopathyEF 40%, anterior/apical wall motion abnormality 3. Nonsustained VT 4. Dyslipidemiahistory of statin intolerance 5. Borderline diabetes Looks well this morning. No recurrent chest pain. HS TropI downtrending Hemodynamically and electrically stable No signs of heart failure on exam. From a cardiac standpoint okay with discharge today. Home on: DAPT with aspirin, ticagrelor Toprol-XL 50 mg daily Lisinopril 5 mg daily Start empagliflozin 10 mg daily Retry statin, rosuvastatin 20 mg daily. If recurrent joint symptoms long-term may need [id number] Will consider MRA as an outpatient if BP allows Monitor home weights, limit salt restriction. Will arrange follow-up with me in 1 to 2 weeks. We discussed possible cardiac rehab. Also discussed work restrictions (letter in chart). Appreciate hospital medicine care Admission and Anticipated Discharge Date Admission Date: June 05, 2024 Subjective Feeling well this morning. Denies any chest pain. No shortness of breath. Telemetry reviewedno additional arrhythmia overnight. Last NSVT around 1700 Review of Systems Review of Systems: All systems reviewed & are unremarkable except as noted in HPI & below Physical Exam Physical Exam: General: Comfortable HEENT: Sclerae anicteric Lungs: Clear to auscultation bilaterally, no crackles or wheezes Cardiac: Regular rate and rhythm, no murmurs. Vascular: Right radial artery access site with no ecchymosis, hematoma. Distal pulse and sensation intact. Abdomen: Soft, nontender Extremities: Well perfused, no peripheral edema Neuro: Nonfocal Psych: Alert orient x3, normal affect and mood Results & Data Vital Signs (Past 12 Hours) Vital Signs Temp Pulse Pulse Resp BP Pulse Ox O2 Del Method 06/07/24 10:43 98.4 F 81 17 104/65 94 Room Air 06/07/24 08:00 77 06/07/24 07:00 99.1 F 79 16 104/68 91 Room Air 06/07/24 03:09 97.7 F 82 18 99/58 L 92 Room Air 06/07/24 00:00 69 PG Care Time/CCT Total # of Minutes Spent Total Time Spent with Patient: Total time spent is greater than 50% in coordination of care (as documented) at patient's floor/unit and/or counseling patient: Coding Level of Care Code 55807 SUB INP/OBS CARE 350MIN Diagnoses CAD (coronary artery disease) I25.10
[2024-06-07] MEDS: EMPAGLIFLOZIN 10 MG TAB PO SCH (12:42)
--- NOTE | 2024-06-07 12:58 | Hospitalist Progress Note ---
Date of Service June 07, 2024 Assessment & Plan (1) STEMI (ST elevation myocardial infarction): (2) CAD (coronary artery disease): (3) Ischemic cardiomyopathy: (4) Hyperlipidemia: (5) Benign hypertension: (6) Type 2 diabetes mellitus: Plan 68-year-old female with past medical history of hypertension, hyperlipidemia, obesity who presented with acute onset of substernal chest pressure on 06/05/2024 while doing some light housework and was brought in by EMS and found to have e levated troponin with EKG showing STEMI #STEMI #Coronary artery disease #Essential hypertension #Hyperlipidemia with hypertriglyceridemia # Ischemic cardiomyopathy with EF of 35% and grade 2 diastolic dysfunction #Nonsustained VT Cardiology Dr. Tony Baker saw the patient She underwent cardiac cath which showed Anterior STEMI/acute 100% proximal LAD occlusion with heavy thrombus burden, Mild to moderate non-culprit coronary artery disease, 30% mid circumflex, 30% mid RCA, 40 to 50% distal RCA involving takeoff of RPDA, 100% chronic occlusion of second diagonal. Partially fills retrograde via left to left collateral She had PCI of proximal to mid LAD with single drug-eluting stent on 06/05/2024 Troponin peaked at 166,000 and is now downtrending Echo from 06/06/2024 shows EF of 35 to 40%, large area of anteroapical akinesis, diastolic dysfunction with grade 2 diastolic dysfunction, no significant valvular disease Triglyceride is 192 Cholesterol is 252 LDL is 154 VLDL is 38 HDL is 60 She is currently on dual antiplatelet therapy: Aspirin plus Brilinta for at least 1 year Continue Crestor 20 mg p.o. daily Cardiology started her on Jardiance 10 mg daily and switch beta-edwar to Toprol-XL 50 mg daily Continue lisinopril 5 mg p.o. daily Continue telemetry monitoring #New diagnosis of type 2 diabetes mellitus A1c 7.1 Patient informed of diagnosis Pharmacy consult for glycemic control hospital educator consult #Leukocytosis Patient is afebrile, denies any respiratory symptoms and denies any urinary symptoms Bio fire was negative 2 view chest x-ray reviewed and no evidence of infiltrates White count is still elevated Urinalysis from yesterday was a contaminated sample Check repeat urinalysis and urine culture today and if evidence of infection, start IV ceftriaxone Monitor white count CODE STATUS: Full code DVT prophylaxis: Lovenox 40 mg subcutaneous daily Discharge planning likely home tomorrow based on improvement in white count and urine culture Care plan discussed with patient, nursing staff and updated at bedside Admission and Anticipated Discharge Date Admission Date: June 05, 2024 Subjective Patient seen and examined Labs and radiology reviewed at bedside White count still elevated, denies any fever, chills, cough or urinary symptoms Patient did have nausea yesterday which has improved Denies any chest pain or shortness of breath Physical Exam Physical Exam: General: No acute distress Psych: Awake and alert HEENT: Anicteric sclera, moist oral mucosa CVS: Regular rate and rhythm Lungs: Bilateral air entry, no wheezing noted Abdomen: Soft, nontender, no rebound, no guarding Ext: No lower extremity edema, no calf tenderness Neuro: No focal motor deficits noted Results & Data Results & Data Vital Signs (Past 12 Hours) Vital Signs Temp Pulse Pulse Resp BP Pulse Ox O2 Del Method 06/07/24 10:43 36.9 C 81 17 104/65 94 Room Air 06/07/24 08:00 77 06/07/24 07:00 37.3 C 79 16 104/68 91 Room Air 06/07/24 03:09 36.5 C 82 18 99/58 L 92 Room Air Laboratory Results Laboratory Results - last 24 hr 06/06/24 06/06/24 06/06/24 16:23 16:49 20:46 WBC RBC Hgb Hct MCV MCH MCHC RDW Std Deviation RDW Coeff of Tiffanie Plt Count MPV Immature Gran % (Auto) Neut % (Auto) Lymph % (Auto) Logan % (Auto) Eos % (Auto) Baso % (Auto) Neut # (Auto) Lymph # (Auto) Logan # (Auto) Eos # (Auto) Baso # (Auto) Immature Gran # (Auto) Sodium Potassium Chloride Carbon Dioxide Anion Gap BUN Creatinine Est Cr Clr Drug Dosing eGFR BUN/Creatinine Ratio Glucose POC Glucose 152 H 127 H Calcium Magnesium Troponin I High Sens 09835.8 H* D 06/07/24 06/07/24 06/07/24 05:56 06:58 11:10 WBC 15.27 H RBC 4.45 Hgb 12.3 Hct 38.2 MCV 85.8 MCH 27.6 MCHC 32.2 RDW Std Deviation 39.9 RDW Coeff of Tiffanie 12.8 Plt Count 217 MPV 9.5 Immature Gran % (Auto) 0.5 Neut % (Auto) 83.6 Lymph % (Auto) 11.0 Logan % (Auto) 4.4 Eos % (Auto) 0.3 Baso % (Auto) 0.2 Neut # (Auto) 12.77 H Lymph # (Auto) 1.68 Logan # (Auto) 0.67 H Eos # (Auto) 0.05 Baso # (Auto) 0.03 Immature Gran # (Auto) 0.07 Sodium 136 Potassium 4.1 Chloride 101 Carbon Dioxide 31 Anion Gap 4 BUN 31 H Creatinine 1.06 Est Cr Clr Drug Dosing 46.6 eGFR 56.51 BUN/Creatinine Ratio 29.2 H Glucose 137 H POC Glucose 135 H 132 H Calcium 9.1 Magnesium 2.5 H Troponin I High Sens 77542.9 H* Diagnostic Findings Chest X-Ray 06/05/24 21:38 Exam(s): XR CXR 1 VIEW EXAM: XR Chest, 1 View CLINICAL HISTORY: Reason for exam: Chest pain, nonspecific. TECHNIQUE: Frontal view of the chest. COMPARISON: Prior chest x-ray from January 31, 2017. FINDINGS: Lungs: Moderate to heavy peribronchial thickening of the central and peripheral bronchi with increased interstitial opacities throughout the lungs. No consolidation. Pleural space: Unremarkable. No pneumothorax. Heart: Unremarkable. No cardiomegaly. Mediastinum: Unremarkable. Normal mediastinal contour. Bones/joints: Unremarkable. No acute fracture. IMPRESSION: Findings concerning for atypical pneumonia. No evidence of consolidation or pleural effusion.. Electronically signed by: Yessenia Wagoner MD 06/06/24 00:20 AM Chest X-Ray 06/06/24 09:46 XR chest 2V PA/lateral HISTORY: 68 years-old Female abnormal portable cxr, stemi COMPARISON: 06/05/2024 TECHNIQUE: AP view of the chest FINDINGS: Cardiac silhouette is normal in size. Mild subsegmental bibasilar atelectasis. No pneumothorax, pleural effusion or pulmonary edema. Cholecystectomy. Spondylotic spurring of the spine. IMPRESSION: No acute process. ACT 112: Negative or not required by law. The above report was generated using voice recognition software. It may contain grammatical, syntax or spelling errors. Electronically signed by: Brant Edwards M.D. 06/06/2024 10:28 AM PG Care Time/CCT Total # of Minutes Spent Total Time Spent with Patient: Total time spent is greater than 50% in coordination of care (as documented) at patient's floor/unit and/or counseling patient: Coding Level of Care Code 01768 SUB INP/OBS CARE 2MIN Diagnoses STEMI (ST elevation myocardial infarction) I21.3 CAD (coronary artery disease) I25.10 Ischemic cardiomyopathy I25.5 Mixed hyperlipidemia E78.2 Hyperlipidemia type: mixed hyperlipidemia Benign hypertension I10 Type 2 diabetes mellitus E11.9 (4) Hyperlipidemia Hyperlipidemia type: mixed hyperlipidemia Qualified Code(s): E78.2 - Mixed hyperlipidemia
[2024-06-07 13:50] LABS: Appearance Urine Clear (Clear); Bacteria Urine Automated None Seen (None Seen); Bilirubin Urine Negative (Negative); Blood Urine Negative (Negative); Color Urine Yellow; Glucose Urine UA Negative (Negative); Ketones Urine Trace (Negative); Leukocyte Esterase Urine 2+ (Negative); Nitrite Urine Negative (Negative); Protein Urine Negative (Negative); RBC Urine Automated 0-2 /hpf (0-2); Specific Gravity Urine 1.024 (1.000-1.030); Urobilinogen Urine Negative (Negative)
[2024-06-07] MEDS: cefTRIAXone SODIUM 2,000 MG/50 ML BAG IV STA (16:13)
[2024-06-07] MEDS: MAGNESIUM OXIDE 400 MG TAB PO SCH (21:11)
[2024-06-08 07:10] LABS: Basophils # (auto) 0.05 K/uL (0.00-0.20); Basophils % (auto) 0.6 %; Eosinophils # (auto) 0.15 K/uL (0.00-0.50); Eosinophils % (auto) 1.7 %; Hematocrit (blood only) 38.6 % (37.0-47.0); Hemoglobin 12.6 g/dl (12.0-16.0); Immature Granulocytes # (auto) 0.02 K/uL (0.01-0.20); Immature Granulocytes % (auto) 0.2 %; Lymphocytes % (auto) 17.2 %; Mean Corpuscular Hemoglobin 28.1 pg (25.0-34.0); Mean Corpuscular Hgb Conc 32.6 g/dL (32.0-36.0); Mean Platelet Volume 9.5 fL (9.4-12.4); Monocytes # (auto) 0.57 K/uL (0.11-0.59); Monocytes % (auto) 6.5 %; Neutrophils # (auto) 6.44 K/uL (1.40-6.50); Neutrophils % (auto) 73.8 %; Platelet Count 211 K/uL (130-400); RDW Coefficient of Variation 12.7 % (11.5-14.5); RDW Standard Deviation 39.9 fL (36.4-46.3); Red Blood Count 4.49 M/uL (4.20-5.40); White Blood Count 8.73 K/ul (4.8-10.8)
[2024-06-08 07:36] LABS: BUN Creatinine Ratio 26.9 (10-20); Calcium 8.9 mg/dl (8.6-10.3); Creatinine Clr Calc Pharmacy 47.4 ml/min; Magnesium 2.1 mg/dl (1.7-2.4); Potassium 4.3 mmol/L (3.5-5.1)
[2024-06-08 07:57] VITALS: O2SAT 96
[2024-06-08] MEDS: cefTRIAXone SODIUM 2,000 MG/50 ML BAG IV SCH (08:12)
[2024-06-08] MEDS: METOPROLOL SUCC 50MG EXT REL TAB PO SCH (08:12)
--- NOTE | 2024-06-08 09:59 | Electrocardiogram Report ---
Test Reason : Blood Pressure : */* mmHG Vent. Rate : 106 BPM Atrial Rate : 106 BPM P-R Int : * ms QRS Dur : 110 ms QT Int : 382 ms P-R-T Axes : * 165 40 degrees QTcB Int : 507 ms Probable Sinus tachycardia Non-specific intra-ventricular conduction delay Recent Anterolateral infarct (cited on or before 06-Jun-2024) Abnormal ECG When compared with ECG of 05-Jun-2024 23:53, Non-specific intra-ventricular conduction delay now present Confirmed by Jose Alberto Khalil ([id number]) on 06/08/2024 9:59:28 AM Referred By: Cherie Dempsey Confirmed By: Jose Alberto Khalil
[2024-06-08 11:11] VITALS: BP 115/72; PULSE 81; RESP 18; TEMP 98.5
--- NOTE | 2024-06-08 12:05 | Discharge Summary ---
Discharge Summary Date of Service June 08, 2024 Principal Dx & Hospital Course #1 = Principal Diagnosis (1) STEMI (ST elevation myocardial infarction): (2) CAD (coronary artery disease): (3) Ischemic cardiomyopathy: (4) Hyperlipidemia: (5) Benign hypertension: (6) Type 2 diabetes mellitus: Plan 68-year-old female with past medical history of hypertension, hyperlipidemia, obesity who presented with acute onset of substernal chest pressure on 06/05/2024 while doing some light housework and was brought in by EMS and found to have elevated troponin with EKG showing STEMI #STEMI #Coronary artery disease #Essential hypertension #Hyperlipidemia with hypertriglyceridemia # Ischemic cardiomyopathy with EF of 35% and grade 2 diastolic dysfunction #Nonsustained VT: resolved Cardiology Dr. Tony Baker saw the patient She underwent cardiac cath which showed Anterior STEMI/acute 100% proximal LAD occlusion with heavy thrombus burden, Mild to moderate non-culprit coronary artery disease, 30% mid circumflex, 30% mid RCA, 40 to 50% distal RCA involving takeoff of RPDA, 100% chronic occlusion of second diagonal. Partially fills retrograde via left to left collateral She had PCI of proximal to mid LAD with single drug-eluting stent on 06/05/2024 Troponin peaked at 166,000 and is now downtrending Echo from 06/06/2024 shows EF of 35 to 40%, large area of anteroapical akinesis, diastolic dysfunction with grade 2 diastolic dysfunction, no significant valvular disease Triglyceride is 192 Cholesterol is 252 LDL is 154 VLDL is 38 HDL is 60 She is currently on dual antiplatelet therapy: Aspirin plus Brilinta for at least 1 year: This was discussed with the patient Continue Crestor 20 mg p.o. daily: Patient has been intolerant of statins in the past. As per cardiology, retry statin rosuvastatin 20 mg daily. If recurrent joint symptoms occur then long-term may need [id number] Cardiology started her on Jardiance 10 mg daily and switched beta-edwar to Toprol-XL 50 mg daily Continue lisinopril 5 mg p.o. daily Outpatient follow-up with cardiology on discharge and outpatient cardiac rehab. #New diagnosis of type 2 diabetes mellitus A1c 7.1 Patient met with marketing content coordinator She is also been started on Jardiance by cardiology Outpatient follow-up with PCP for diabetes management #Suspected UTI Patient is afebrile, denies any respiratory symptoms and denies any urinary symptoms Bio fire was negative 2 view chest x-ray reviewed and no evidence of infiltrates Urinalysis showed evidence of UTI Urine culture was a contaminated sample Patient's white count improved after 2 days of IV ceftriaxone She has been switched to oral Keflex for 3 more days to complete a 5-day course of antibiotics Patient seen and examined. She is ambulating without any issues. She denies any chest pain or shortness of breath. I have gone over the discharge care plan, medications and follow-up with the patient in great detail and answered all her questions. This discharge to greater than 30 minutes to coordinate Admission HPI Per Admitting Provider Edelmira Mendieta is a 68yo female with history of HTN, HLP and Obesity presenting with acute onset of substernal chest pressure around 16:00. Patient reports she was doing some light housework when she developed chest pain. Patient presented by EMS. Administered ASA, Nitro x 5 sprays, Oxygen and Fentanyl prior to arrival. Still with chest pain upon arrival. EKG with evidence of anterior/septal STEMI Troponin elevated Administered Ticagrelor 180mg, Dilaudid 1mg, Heparin 5000u, Heart Alert activated and patient taken urgently for cardiac catheterization. Patient found to have 100% proximal LAD occlusion with heavy thrombus burden with mild to moderate CAD elsewhere (30% mid-circumflex, 30% mid RCA, 40-50% distal RCA and 100% chronic occlusion of second diagonal). CORINNE x 1 placed to proximal to mid LAD Patient did have high cardiac pressures, was administered Lasix 40mg IV x 1 dose in the hospital laboratory technician Discharge Exam General: No acute distress Psych: Awake and alert HEENT: Anicteric sclera, moist oral mucosa CVS: Regular rate and rhythm Lungs: Bilateral air entry, no wheezing noted Abdomen: Soft, nontender, no rebound, no guarding Ext: No lower extremity edema, no calf tenderness Neuro: No focal motor deficits noted Discharge Plan Discharge Items Patient Disposition: Home - Self-Care Reason For Visit: STEMI Discharge Diagnosis: #STEMI: ST elevation myocardial infarction #Coronary artery disease #Essential hypertension #Hyperlipidemia with hypertriglyceridemia # Ischemic cardiomyopathy with EF of 35% and grade 2 diastolic dysfunction #Nonsustained VT #New diagnosis of type 2 diabetes mellitus #Suspected UTI Condition on Discharge: Fair Activity: As commented below Activity Comment: As tolerated. Return to work based on cardiology recommendations Lifting: Wait until after follow-up appointment Lifting Comment: Wait until follow-up appointment with cardiology Exercise/Sports: Gradually increase as tolerated Non-emergency contact: Primary Care Provider Call non-emergency contact if: you have any medication questions, your symptoms worsen and you have a fever Follow-up/Referrals: Lynette Puri CRNP [Primary Care Provider] - 06/15/24 10:30 am (Hospital follow up on June 15 at 10:30 am.) Tony Baker MD [Physician] - (Cardiology will reach out to and schedule follow up appointment) Diet: Carb Consistent or DM2, Heart Healthy, Low Fat and Low Sodium (2gm) Addtl Attending Provider Instructions: DISCHARGE INSTRUCTION TO PATIENT/FAMILY: Follow-up with your primary care provider within 1 week regarding: Posthospital discharge, medication review, medication refills and follow-up on all your medical problems, coronary disease, new diagnosis of type 2 diabetes mellitus, LABS Please take all your discharge medications, discharge information and discharge instructions to all your doctors appointments. Avoid all NSAIDs including ibuprofen, Motrin, Advil, Aleve, naproxen, meloxicam, Toradol, diclofenac Follow-up with your artist scientific Dr. Tony Baker in 1 to 2 weeks time regarding cardiac follow-up Follow-up with your primary care provider regarding your new diagnosis of type 2 diabetes mellitus: Your A1c 7.1 Labs through PCP in 1 to 2 weeks: CBC, CMP, MG, CPK Pending Studies at Discharge: No Stand-Alone Forms: My [employer], Smoking Cessation Medications and DC Order Prescriptions: New metoprolol succinate 50 mg Tablet Extended Release 24 Hr 50 mg PO QAM Qty: 30 0RF rosuvastatin 20 mg Tablet 20 mg PO QAM Qty: 30 0RF nitroglycerin [Nitrostat] 0.4 mg Tablet, Sublingual 0.4 mg sublingual Q5M PRN (Reason: chest pain) Qty: 30 0RF Rx Instructions: Take every 5 minutes as needed for chest pain times maximum 3 doses only. Call 911 if chest pain does not subside and also speak with your PCP/cardiolog ist aspirin 81 mg Tablet,Delayed Release (Dr/Ec) 81 mg PO QAM Qty: 30 0RF Jardiance 10 mg Tablet 10 mg PO DAILY Qty: 30 0RF Brilinta 90 mg Tablet 90 mg PO BID Qty: 60 0RF lisinopril [Zestril] 5 mg Tablet 5 mg PO QAM Qty: 30 0RF cephalexin 500 mg capsule 500 mg PO TID 3 Days Qty: 9 0RF Rx Instructions: START ON 06/09/24 (DME) blood-glucose meter [OneTouch Ultra2 Meter] Misc See Rx Instructions .Route Qty: 1 0RF Rx Instructions: USE TO CHECK BLOOD SUGAR 1X/DAY (DME) OneTouch Ultra Test Strip See Rx Instructions .Route Qty: 100 0RF Rx Instructions: TO CHECK BLOOD SUGAR 1X/DAY (DME) lancets [OneTouch Delica Plus Lancet] 33 gauge misc See Rx Instructions .Route Qty: 100 0RF Rx Instructions: TO CHECK BLOOD SUGAR 1X/DAY magnesium oxide 400 mg (241.3 mg magnesium) Tablet 400 mg PO HS Qty: 7 0RF Rx Instructions: AVAILABLE OVER THE COUNTER Continued cholecalciferol (vitamin D3) 50 mcg (2,000 unit) capsule 2,000 units PO DAILY cyanocobalamin (vitamin B-12) 1,000 mcg tablet extended release 1,000 mcg PO DAILY omega 4-mmh-mhf-fish oil [Fish Oil] 1,000 (120-180) mg Capsule 1 cap PO DAILY Discharge Orders: Discharge Order (Routine); Ordered 06/08/24 Ordered By: Stan Cortes/Other Patient Handouts: CAD, Heart Attack Dc Admission Data Admit Date/Time: 06/05/24 23:23 Attending Provider: Stan Hdez Admit Provider: Tony Baker Primary Care Provider: Lynette Puri Other Providers: Chato Chicas Other Interventions: Discharge Summary Assessment (RN) Last Done: 06/08/24 14:36 Hospital Stay Data Consultations 06/05/24 23:41 Consult [employer]mill Tally Clerk Routine 06/07/24 18:41 Consult Cardiac Rehabilitation Routine Procedures Performed Operation Date: 06/05/24 22:00 Actual Procedures p Aspiration/PCI w/CORINNE for Stemi - Tony Baker MD s IVUS Coronary Single Vessel - Tony Baker MD Diagnostic Imagining Performed 06/05/24 21:51 CL Cath Imgs for PACS use only Stat 06/05/24 22:43 CL IVUS Coronary Single Vessel Stat Laboratory Results - last 48 hr 06/06/24 06/06/24 06/06/24 16:23 16:49 20:46 WBC RBC Hgb Hct MCV MCH MCHC RDW Std Deviation RDW Coeff of Tiffanie Plt Count MPV Immature Gran % (Auto) Neut % (Auto) Lymph % (Auto) [place] % (Auto) Eos % (Auto) Baso % (Auto) Neut # (Auto) Lymph # (Auto) [place] # (Auto) Eos # (Auto) Baso # (Auto) Immature Gran # (Auto) Sodium Potassium Chloride Carbon Dioxide Anion Gap BUN Creatinine Est Cr Clr Drug Dosing eGFR BUN/Creatinine Ratio Glucose POC Glucose 152 H 127 H Calcium Magnesium Troponin I High Sens 92671.8 H* D Urine Color Urine Appearance Urine pH Ur Specific [place] Urine Protein Urine Glucose (UA) Urine Ketones Urine Blood Urine Nitrite Urine Bilirubin Urine Urobilinogen Ur Leukocyte Esterase Urine WBC (Auto) Urine RBC (Auto) U Hyaline Cast (Auto) U Epithel Cells (Auto) Urine Bacteria (Auto) 06/07/24 06/07/24 06/07/24 05:56 06:58 11:10 WBC 15.27 H RBC 4.45 Hgb 12.3 Hct 38.2 MCV 85.8 MCH 27.6 MCHC 32.2 RDW Std Deviation 39.9 RDW Coeff of Tiffanie 12.8 Plt Count 217 MPV 9.5 Immature Gran % (Auto) 0.5 Neut % (Auto) 83.6 Lymph % (Auto) 11.0 [place] % (Auto) 4.4 Eos % (Auto) 0.3 Baso % (Auto) 0.2 Neut # (Auto) 12.77 H Lymph # (Auto) 1.68 [place] # (Auto) 0.67 H Eos # (Auto) 0.05 Baso # (Auto) 0.03 Immature Gran # (Auto) 0.07 Sodium 136 Potassium 4.1 Chloride 101 Carbon Dioxide 31 Anion Gap 4 BUN 31 H Creatinine 1.06 Est Cr Clr Drug Dosing 46.6 eGFR 56.51 BUN/Creatinine Ratio 29.2 H Glucose 137 H POC Glucose 135 H 132 H Calcium 9.1 Magnesium 2.5 H Troponin I High Sens 78382.9 H* Urine Color Urine Appearance Urine pH Ur Specific [place] Urine Protein Urine Glucose (UA) Urine Ketones Urine Blood Urine Nitrite Urine Bilirubin Urine Urobilinogen Ur Leukocyte Esterase Urine WBC (Auto) Urine RBC (Auto) U Hyaline Cast (Auto) U Epithel Cells (Auto) Urine Bacteria (Auto) 06/07/24 06/07/24 06/07/24 13:30 16:25 20:15 WBC RBC Hgb Hct MCV MCH MCHC RDW Std Deviation RDW Coeff of Tiffanie Plt Count MPV Immature Gran % (Auto) Neut % (Auto) Lymph % (Auto) [place] % (Auto) Eos % (Auto) Baso % (Auto) Neut # (Auto) Lymph # (Auto) [place] # (Auto) Eos # (Auto) Baso # (Auto) Immature Gran # (Auto) Sodium Potassium Chloride Carbon Dioxide Anion Gap BUN Creatinine Est Cr Clr Drug Dosing eGFR BUN/Creatinine Ratio Glucose POC Glucose 141 H 131 H Calcium Magnesium Troponin I High Sens Urine Color Yellow Urine Appearance Clear Urine pH 5.0 Ur Specific [place] 1.024 Urine Protein Negative Urine Glucose (UA) Negative Urine Ketones Trace H Urine Blood Negative Urine Nitrite Negative Urine Bilirubin Negative Urine Urobilinogen Negative Ur Leukocyte Esterase 2+ H Urine WBC (Auto) 11-20 H Urine RBC (Auto) 0-2 U Hyaline Cast (Auto) 3-5 H U Epithel Cells (Auto) 3-5 H Urine Bacteria (Auto) None Seen 06/08/24 06/08/24 06/08/24 06:36 07:27 11:34 WBC 8.73 RBC 4.49 Hgb 12.6 Hct 38.6 MCV 86.0 MCH 28.1 MCHC 32.6 RDW Std Deviation 39.9 RDW Coeff of Tiffanie 12.7 Plt Count 211 MPV 9.5 Immature Gran % (Auto) 0.2 Neut % (Auto) 73.8 Lymph % (Auto) 17.2 [place] % (Auto) 6.5 Eos % (Auto) 1.7 Baso % (Auto) 0.6 Neut # (Auto) 6.44 Lymph # (Auto) 1.50 [place] # (Auto) 0.57 Eos # (Auto) 0.15 Baso # (Auto) 0.05 Immature Gran # (Auto) 0.02 Sodium 138 Potassium 4.3 Chloride 103 Carbon Dioxide 28 Anion Gap 7 BUN 28 H Creatinine 1.04 Est Cr Clr Drug Dosing 47.4 eGFR 57.82 BUN/Creatinine Ratio 26.9 H Glucose 131 H POC Glucose 139 H 124 H Calcium 8.9 Magnesium 2.1 Troponin I High Sens Urine Color Urine Appearance Urine pH Ur Specific [place] Urine Protein Urine Glucose (UA) Urine Ketones Urine Blood Urine Nitrite Urine Bilirubin Urine Urobilinogen Ur Leukocyte Esterase Urine WBC (Auto) Urine RBC (Auto) U Hyaline Cast (Auto) U Epithel Cells (Auto) Urine Bacteria (Auto) Chest X-Ray 06/05/24 21:38 Exam(s): XR CXR 1 VIEW EXAM: XR Chest, 1 View CLINICAL HISTORY: Reason for exam: Chest pain, nonspecific. TECHNIQUE: Frontal view of the chest. COMPARISON: Prior chest x-ray from January 31, 2017. FINDINGS: Lungs: Moderate to heavy peribronchial thickening of the central and peripheral bronchi with increased interstitial opacities throughout the lungs. No consolidation. Pleural space: Unremarkable. No pneumothorax. Heart: Unremarkable. No cardiomegaly. Mediastinum: Unremarkable. Normal mediastinal contour. Bones/joints: Unremarkable. No acute fracture. IMPRESSION: Findings concerning for atypical pneumonia. No evidence of consolidation or pleural effusion.. Electronically signed by: Yessenia Wagoner MD 06/06/24 00:20 AM Chest X-Ray 06/06/24 09:46 XR chest 2V PA/lateral HISTORY: 68 years-old Female abnormal portable cxr, stemi COMPARISON: 06/05/2024 TECHNIQUE: AP view of the chest FINDINGS: Cardiac silhouette is normal in size. Mild subsegmental bibasilar atelectasis. No pneumothorax, pleural effusion or pulmonary edema. Cholecystectomy. Spondylotic spurring of the spine. IMPRESSION: No acute process. ACT 112: Negative or not required by law. The above report was generated using voice recognition software. It may contain grammatical, syntax or spelling errors. Electronically signed by: Brant Edwards M.D. 06/06/2024 10:28 AM 06/07/24 13:30 Urine Culture - Final Urine,Straight Cath Three types of organisms present, all high counts. Repeat collection recommended. No further identifications or sensitivities to follow. 06/08/24 06/08/24 06/08/24 11:34 07:27 06:36 WBC 8.73 RBC 4.49 Hgb 12.6 Hct 38.6 MCV 86.0 MCH 28.1 MCHC 32.6 RDW Std Deviation 39.9 RDW Coeff of Tiffanie 12.7 Plt Count 211 MPV 9.5 Immature Gran % (Auto) 0.2 Neut % (Auto) 73.8 Lymph % (Auto) 17.2 [place] % (Auto) 6.5 Eos % (Auto) 1.7 Baso % (Auto) 0.6 Neut # (Auto) 6.44 Lymph # (Auto) 1.50 [place] # (Auto) 0.57 Eos # (Auto) 0.15 Baso # (Auto) 0.05 Immature Gran # (Auto) 0.02 Sodium 138 Potassium 4.3 Chloride 103 Carbon Dioxide 28 Anion Gap 7 BUN 28 H Creatinine 1.04 Est Cr Clr Drug Dosing 47.4 eGFR 57.82 BUN/Creatinine Ratio 26.9 H Glucose 131 H POC Glucose 124 H 139 H Calcium 8.9 Magnesium 2.1 Urine Color Urine Appearance Urine pH Ur Specific [place] Urine Protein Urine Glucose (UA) Urine Ketones Urine Blood Urine Nitrite Urine Bilirubin Urine Urobilinogen Ur Leukocyte Esterase Urine WBC (Auto) Urine RBC (Auto) U Hyaline Cast (Auto) U Epithel Cells (Auto) Urine Bacteria (Auto) 06/07/24 06/07/24 06/07/24 20:15 16:25 13:30 WBC RBC Hgb Hct MCV MCH MCHC RDW Std Deviation RDW Coeff of Tiffanie Plt Count MPV Immature Gran % (Auto) Neut % (Auto) Lymph % (Auto) [place] % (Auto) Eos % (Auto) Baso % (Auto) Neut # (Auto) Lymph # (Auto) [place] # (Auto) Eos # (Auto) Baso # (Auto) Immature Gran # (Auto) Sodium Potassium Chloride Carbon Dioxide Anion Gap BUN Creatinine Est Cr Clr Drug Dosing eGFR BUN/Creatinine Ratio Glucose POC Glucose 131 H 141 H Calcium Magnesium Urine Color Yellow Urine Appearance Clear Urine pH 5.0 Ur Specific [place] 1.024 Urine Protein Negative Urine Glucose (UA) Negative Urine Ketones Trace H Urine Blood Negative Urine Nitrite Negative Urine Bilirubin Negative Urine Urobilinogen Negative Ur Leukocyte Esterase 2+ H Urine WBC (Auto) 11-20 H Urine RBC (Auto) 0-2 U Hyaline Cast (Auto) 3-5 H U Epithel Cells (Auto) 3-5 H Urine Bacteria (Auto) None Seen Pending Results Patient Have Any Pending Studies at Discharge: No Discharge Instructions Given to Patient (Per Discharging Provider) DISCHARGE INSTRUCTION TO PATIENT/FAMILY: Follow-up with your primary care provider within 1 week regarding: Posthospital discharge, medication review, medication refills and follow-up on all your med ical problems, coronary disease, new diagnosis of type 2 diabetes mellitus, LABS Please take all your discharge medications, discharge information and discharge instructions to all your doctors appointments. Avoid all NSAIDs including ibuprofen, Motrin, Advil, Aleve, naproxen, meloxicam, Toradol, diclofenac Follow-up with your artist scientific Dr. Tony Baker in 1 to 2 weeks time regarding cardiac follow-up Follow-up with your primary care provider regarding your new diagnosis of type 2 diabetes mellitus: Your A1c 7.1 Labs through PCP in 1 to 2 weeks: CBC, CMP, MG, CPK Total Time Total Time Spent Total Time Spent (In Minutes): 40 minutes Coding Level of Care Code 16175 INP/OBS DISCH >30 MIN Diagnoses STEMI (ST elevation myocardial infarction) I21.3 CAD (coronary artery disease) I25.10 Ischemic cardiomyopathy I25.5 Mixed hyperlipidemia E78.2 Hyperlipidemia type: mixed hyperlipidemia Benign hypertension I10 Type 2 diabetes mellitus E11.9
== END 2024-06-08 16:00 | disposition home or self-care (01) | DRG 322 ==
LOC: ED 21:45 → 1E 22:15 → SUATTDRO 23:23 → 2E 06-06 18:39